=== PATIENT | female | born 1955 | race Caucasian/White ===

== ENCOUNTER → 2017-10-23 | Outpatient (CLI) | payer OTHER, SELFPAY ==
[2017-10-23 10:17] LABS: Collection Time Urine 24 Hours; Creatinine 24 Hour Urine 932 mg/day (800-1800); Creatinine Urine Random 56.5 mg/dL; Protein (Total) Urine Random 12 mg/dL (0-12); Total Protein 24 Hour Urine 198 mg/day (42-225); Total Volume Urine 1650 mL
== END ==
LOC: LAB 08:44
PROVIDERS: PCP Family Medicine; Visit Provider Family Medicine
DX: R60.0 Localized edema (principal)
CPT/HCPCS: 82570; 84156

== ENCOUNTER → 2018-05-29 07:42 | Outpatient (CLI) | payer OTHER, SELFPAY ==
--- NOTE | 2018-05-29 07:43 | DI.US.S_ITS ---
PROCEDURE: US RENAL COMPLETE INDICATIONS: PARAPELVIC CYSTS VS HYDRONEPHROSIS TECHNIQUE: Real-time scanning was performed of the kidneys and bladder, with image documentation. COMPARISON: , MR, MR LUMBAR SPINE WITHOUT CONTRAST, 10/31/2017, 12:31. FINDINGS: Kidneys: Kidneys are normal in size. Right kidney measures 11.7 cm long; left kidney measures 12.5 cm long. Right renal cortical thickness is 1.7 cm; left renal cortical thickness is 1.5 cm. Renal cortical echotexture is normal. Mild to moderate left hydronephrosis. Multiple right parovarian cysts present largest measuring roughly 1.0 cm. Left renal peripelvic cyst measuring 2.6 cm. Bladder: Pre-void bladder volume is 125 mL. Post-void residual is 111 mL. Pre-void images demonstrate no intraluminal masses or stones. On pre-void images, left ureteral jets are noted with color Doppler interrogation. (Of note, ureteral jets may not be detectable in up to 25% of cases due to insufficient differences in specific gravity between ureteral and bladder urine). Miscellaneous: No free pelvic fluid. IMPRESSION: 1. Mild/moderate left hydronephrosis. If indicated CT could be performed for further evaluation. 2. Bilateral renal peripelvic cysts. Dictated by: Chris Michaud A Interpreted: Poly Wilks MD on 05/29/2018 at 9:11 Approved by: Poly Wilks MD, PhD on 05/29/2018 at 14:50
== END ==
PROVIDERS: Family Provider Family Medicine; PCP Family Medicine; Visit Provider Family Medicine
DX: N28.1 Cyst of kidney, acquired (principal); N13.30 Unspecified hydronephrosis
CPT/HCPCS: 76770

== ENCOUNTER → 2018-06-21 09:41 | Outpatient (CLI) | payer OTHER, SELFPAY ==
--- NOTE | 2018-06-21 | DI.NM.S_ITS ---
PROCEDURE: NM RENAL FUNCTION W LASIX RADIOPHARMACEUTICAL: 10.5 mCi Tc-99m MAG3 IV and 40 mg furosemide IV. INDICATIONS: LEFT HYDRONEPHROSIS TECHNIQUE: The patient was hydrated orally before the examination was begun. After intravenous administration of Tc-99m MAG3, posterior abdominal radionuclide angiogram and sequential (1 minute each frame) renal images were obtained. A time-activity curve for each kidney was generated and analyzed. To evaluate for obstruction, the patient was given 40 mg furosemide via slow intravenous injection after the start of the examination. Sequential images were obtained for up to an additional 20 minutes. COMPARISON: [facility], MR, MR LUMBAR SPINE WITHOUT CONTRAST, 10/31/2017, 12:31. [facility], US, US RENAL COMPLETE, 05/29/2018, 7:57. FINDINGS: Perfusion: There is normal vascular flow to both kidneys. Morphology: Both kidneys are normal in size and shape. No dilated collecting systems are seen on the right, and on the left there is mild hydronephrosis and hydroureter extending inferiorly to the bladder level.. The ureters and bladder fill with tracer, and appear normal. Function: Both kidneys demonstrate normal cortical tracer uptake, with [id number] activity measuring 2.5 minutes. The right kidney contributes 59% of total renal function. The left kidney contributes 41 % of total renal function. Lasix stimulation: After diuretic administration, there is prompt clearance of tracer activity from the renal collecting systems in both kidneys. The half-time of emptying of tracer activity from the right pelvicaliceal system is 6.9 minutes. The half-time of emptying from the left pelvicaliceal system is 11.2 minutes. Normal emptying half-times are less than 10 minutes; borderline ranges are from 10 to 20 minutes. IMPRESSION: Asymmetric renal function is mild in this patient with hydronephrosis and hydroureter extending to the bladder level. Etiology is not established by this study. There is approximately a 60% right renal contribution to total renal function in 40% on the left. Evacuation of the radioisotope after Lasix is mildly delayed on the left, as expected given the presence of chronic hydronephrosis, but without evidence of high-grade obstruction. Dictated by: Levon Fenton M.D. on 06/21/2018 at 13:59 Approved by: Levon Fenton M.D. on 06/21/2018 at 14:09
== END ==
PROVIDERS: PCP Family Medicine; Visit Provider Specialist
DX: N13.30 Unspecified hydronephrosis (principal)
CPT/HCPCS: 78708; A9562

== ENCOUNTER → 2018-10-09 08:49 | Outpatient (CLI) | payer OTHER, SELFPAY ==
--- NOTE | 2018-10-09 | DI.MG.S_ITS ---
BILATERAL DIGITAL SCREENING MAMMOGRAM 3D/2D WITH CAD: 10/09/2018 CLINICAL: Routine screening. Comparison is made to exams dated: 08/07/2017 mammogram - [facility], 02/25/2016 mammogram, and 11/09/2014 mammogram - [facility]. There are scattered fibroglandular elements in both breasts. Current study was also evaluated with a Computer Aided Detection (CAD) system. No significant masses, calcifications, or other findings are seen in either breast. There has been no significant interval change. IMPRESSION: NEGATIVE There is no mammographic evidence of malignancy. A 1 year screening mammogram is recommended. This exam was interpreted at Station ID: [id number]. NOTE: For mammograms, a report in lay terms will be sent to the patient. Approximately 15% of breast malignancies will not be visualized mammographically. In the management of a palpable breast mass, a negative mammogram must not discourage biopsy of a clinically suspicious lesion. Electronically Signed By: Florence govea/tani:10/09/2018 10:10:42 letter sent: Normal Exam ACR BI-RADS Category 1: Negative [id number]
== END ==
PROVIDERS: PCP Family Medicine; Visit Provider Family Medicine
DX: Z12.31 Encounter for screening mammogram for malignant neoplasm of breast (principal)
CPT/HCPCS: 77063; 77067

== ENCOUNTER → 2018-10-23 10:48 | Outpatient (CLI) | payer OTHER, SELFPAY ==
[2018-10-23 10:52] LABS: RBC Urine None Seen (0-5/HPF)
[2018-10-23 11:18] LABS: Appearance Urine UA CLEAR; Bilirubin Urine UA NEGATIVE (NEGATIVE); Color Urine UA YELLOW; Glucose Urine UA NEGATIVE (Negative); Ketones Urine UA NEGATIVE (NEGATIVE); Leukocyte Esterase Urine UA NEGATIVE (NEGATIVE); Nitrite Urine UA POSITIVE (Negative); Occult Blood Urine UA NEGATIVE (Negative); Protein Urine UA NEGATIVE (Negative); Urobilinogen Urine UA 0.2 E.U./dL (0.2)
[2018-10-23 11:26] LABS: Bacteria Urine Many (>30); Culture Indicated Urine Specimen Cultured; Squamous Epithelial Cell Urine 0-1 /HPF (0-5/HPF); WBC Urine 0-1/HPF (0-5/HPF)
[2018-10-23 12:22] LABS: Add Manual Diff / Slide Review NO; Basophils Absolute Auto 0 /uL (0-100); Basophils Percent Auto 1.1 % (0-2); Eosinophils Absolute Auto 100 /uL (0-450); Eosinophils Percent Auto 1.7 % (2-4); Hematocrit 38.7 % (36-46); Lymphocytes Absolute Auto 1200 /uL (1100-4500); Lymphocytes Percent Auto 31.2 % (25-40); Mean Corpuscular HGB Conc 33.6 % (30-36); Mean Corpuscular Hemoglobin 29.8 PG (26-34); Mean Corpuscular Volume 88.8 fL (80-100); Monocytes Absolute Auto 400 /uL (0-900); Monocytes Percent Auto 11.9 % (3-14); Neutrophils Absolute Auto 2000 /uL (1500-7000); Neutrophils Percent Auto 54.1 % (50-75); Platelet Count 289 X10^3/uL (150-400); Red Blood Cell Count 4.36 X10^6/uL (4.0-5.2); Red Cell Distribution Width 13.4 % (11.6-14.8); White Blood Cell Count 3.8 X10^3/uL (4.5-11.0)
[2018-10-23 12:33] LABS: Alanine Aminotransferase 40 IU/L (9-52); Albumin 4.4 g/dL (3.5-5.0); Albumin Globulin Ratio 1.4 (1.0-2.8); Alkaline Phosphatase 94 U/L (38-126); Aspartate Aminotransferase 27 IU/L (14-36); BUN Creatinine Ratio 23.8 (6-22); Bilirubin Total 0.4 mg/dL (0.2-1.3); Blood Urea Nitrogen 19 mg/dL (7-17); Calcium 9.5 mg/dL (8.4-10.2); Carbon Dioxide 26 mmol/L (22-32); Chloride 101 mmol/L (98-107); Cholesterol 260 mg/dL (140-199); Estimated Glomerular Filt Rate > 60.0 mL/min (>60); Globulin 3.1 g/dL (1.7-4.1); Glucose 97 mg/dL (80-110); HDL Cholesterol 44 mg/dL (40-60); HEMOLYSIS < 15 (0-50); LDL Cholesterol Calculated 183 mg/dL (<100); Potassium 3.8 mmol/L (3.4-5.1); Sodium 138 mmol/L (137-145); Total Protein 7.5 g/dL (6.3-8.2); Triglycerides 167 mg/dL (35-150)
[2018-10-23 12:49] LABS: TSH w/ Reflex to FT4 1.74 uIU/mL (0.47-4.68)
== END ==
PROVIDERS: PCP Family Medicine; Visit Provider Family Medicine
DX: Z00.00 Encounter for general adult medical examination without abnormal findings (principal); E78.2 Mixed hyperlipidemia; R30.0 Dysuria; N28.1 Cyst of kidney, acquired
CPT/HCPCS: 80053; 80061; 81001; 84443; 85025; 87077; 87086; 87186

== ENCOUNTER → 2019-07-24 08:44 | Outpatient (CLI) | payer MEDICARE, BC, SELFPAY ==
[2019-07-24 09:55] LABS: Cholesterol 203 mg/dL (140-199); HDL Cholesterol 45 mg/dL (40-60); LDL Cholesterol Calculated 141 mg/dL (<100); Triglycerides 86 mg/dL (35-150)
== END ==
PROVIDERS: PCP Family Medicine; Visit Provider Family Medicine
DX: E78.2 Mixed hyperlipidemia (principal)
CPT/HCPCS: 36415; 80061

== ENCOUNTER → 2019-12-16 10:43 | Outpatient (CLI) | payer MEDICARE, BC, SELFPAY ==
[2019-12-16 12:29] LABS: BUN Creatinine Ratio 24.1 (6-22); Blood Urea Nitrogen 19 mg/dL (7-17); Carbon Dioxide 24 mmol/L (22-32); Chloride 103 mmol/L (98-107); Estimated Glomerular Filt Rate > 60.0 mL/min (>60); Glucose 96 mg/dL (80-110); HEMOLYSIS 18 (0-50); Potassium 4.4 mmol/L (3.4-5.1); Sodium 136 mmol/L (137-145)
[2019-12-16 12:33] LABS: Creatinine Urine Random 67.5 mg/dL
[2019-12-16 12:38] LABS: Microalbumi Creatinin Ratio Ur 16.2 ug/mg CR (<30); Microalbumin Urine Random 1.1 mg/dL (0-1.6)
== END ==
PROVIDERS: PCP Family Medicine; Referring Provider Family Medicine; Visit Provider Family Medicine
DX: I10 Essential (primary) hypertension (principal)
CPT/HCPCS: 36415; 80048; 82043; 82570

== ENCOUNTER → 2020-10-15 10:14 | Outpatient (CLI) | payer MEDICARE, BC, SELFPAY ==
--- NOTE | 2020-10-15 | DI.MG.S_ITS ---
BILATERAL DIGITAL SCREENING MAMMOGRAM 3D/2D WITH CAD: 10/15/2020 CLINICAL: Routine screening. Comparison is made to exams dated: 10/09/2018 mammogram, 08/07/2017 mammogram - [facility], and 02/25/2016 mammogram - [facility]. There are scattered fibroglandular elements in both breasts. Current study was also evaluated with a Computer Aided Detection (CAD) system. There are benign intramammary nodes in the right breast. No significant masses, calcifications, or other findings are seen in either breast. There has been no significant interval change. IMPRESSION: BENIGN There is no mammographic evidence of malignancy. A 1 year screening mammogram is recommended. This exam was interpreted at Station ID: [id number]. NOTE: For mammograms, a report in lay terms will be sent to the patient. Approximately 15% of breast malignancies will not be visualized mammographically. In the management of a palpable breast mass, a negative mammogram must not discourage biopsy of a clinically suspicious lesion. Electronically Signed By: Priya rueda/tani:10/15/2020 12:42:30 letter sent: Normal Exam ACR BI-RADS Category 2: Benign Finding(s) 3342F
== END ==
PROVIDERS: PCP Family Medicine; Referring Provider Family Medicine; Visit Provider Family Medicine
DX: Z12.31 Encounter for screening mammogram for malignant neoplasm of breast (principal)
CPT/HCPCS: 77063; 77067

== ENCOUNTER → 2020-12-31 09:44 | Outpatient (CLI) | payer MEDICARE, BC, SELFPAY ==
[2020-12-31 11:18] LABS: Creatinine Urine Random 119.6 mg/dL
[2020-12-31 11:24] LABS: Microalbumin Urine Random 1.8 mg/dL (0-1.6)
[2020-12-31 11:30] LABS: Alanine Aminotransferase 25 IU/L (<35); Albumin 4.3 g/dL (3.5-5.0); Albumin Globulin Ratio 1.7 (1.0-2.8); Alkaline Phosphatase 82 U/L (38-126); Aspartate Aminotransferase 31 IU/L (14-36); BUN Creatinine Ratio 16.3 (6-22); Bilirubin Total 0.5 mg/dL (0.2-1.3); Blood Urea Nitrogen 14 mg/dL (7-17); Calcium 10.1 mg/dL (8.4-10.2); Carbon Dioxide 29 mmol/L (22-32); Chloride 102 mmol/L (98-107); Cholesterol 215 mg/dL (140-199); Estimated Glomerular Filt Rate > 60.0 mL/min (>60); Globulin 2.6 g/dL (1.7-4.1); Glucose 89 mg/dL (80-110); HDL Cholesterol 48 mg/dL (40-60); HEMOLYSIS < 15 (0-50); LDL Cholesterol Calculated 127 mg/dL (<100); Potassium 4.2 mmol/L (3.4-5.1); Sodium 139 mmol/L (137-145); Total Protein 6.9 g/dL (6.3-8.2); Triglycerides 200 mg/dL (35-150)
== END ==
PROVIDERS: PCP Family Medicine; Referring Provider Family Medicine; Visit Provider Family Medicine
DX: I10 Essential (primary) hypertension (principal)
CPT/HCPCS: 36415; 80053; 80061; 82043; 82570

== ENCOUNTER → 2021-04-29 08:08 | Outpatient (CLI) | payer MEDICARE, OTHER, SELFPAY ==
--- NOTE | 2021-04-29 | DI.MRI.S_ITS ---
PROCEDURE: MR KNEE RT WO CON INDICATIONS: Unilateral primary osteoarthritis, right knee TECHNIQUE: Noncontrast sagittal PD fast spin echo and T2 fast spin echo with fat saturation, sagittal 3-D FLASH with fat saturation; coronal T1 spin echo and PD fast spin echo with fat saturation, and axial PD fast spin echo with fat saturation through the knee. COMPARISON: None. FINDINGS: Image quality: Images are degraded by motion artifact. Menisci: Deficiency of the medial meniscus, compatible with longstanding tear/degenerative change. Non surface signal in the posterior horn, medial meniscus. Cruciate ligaments: Patient is status post anterior cruciate ligament repair. The graft is not well seen, concerning for disruption. The femoral and tibial hardware is in expected positions, without widening or tunnel cysts. The posterior cruciate ligament appears intact. Medial structures: Periligamentous edema, compatible with grade 2 injury. The visualized portions of the pes anserinus tendons appear intact. Lateral structures: The lateral collateral ligament complex appears intact. The popliteus tendon appears intact. A 3.8 x 4.4 x 1.8 cm fluid collection is seen deep to the lateral gastrocnemius and abutting the popliteus (series 8, image 26). The iliotibial band appears normal, without findings to suggest friction syndrome. Anterior structures: The quadriceps and patellar tendons appear intact. Patellar alignment is normal. No femoral trochlear dysplasia or ventral trochlear prominence. No edema in the infrapatellar fat pad. No localized arthrofibrosis (cyclops lesion) in the anterior intercondylar notch. Bones and cartilage: Sagittal images demonstrate no abnormal anterior tibial translation. Tricompartmental osteophytosis. No bone marrow contusions or fractures. Signal heterogeneity, contour irregularity, and thinning of the tricompartment hyaline cartilage. Joint space: Small knee joint fluid. A 4.7 x 1.8 x 1.4 cm T2 hyperintense lesion is seen in the popliteal fossa, most consistent with a Moya's cyst. No intra-articular bodies. IMPRESSION: 1. Grade 2 injury of the MCL. 2. Fluid collection in the lateral posterior calf as detailed above, most consistent with a hematoma. Differential considerations include musculotendinous injury of the popliteus or intramuscular hematoma of the lateral gastrocnemius. 3. Poor visualization of the ACL graft, concerning for disruption. 4. Small joint effusion. 5. Cystic-appearing lesion in the popliteal fossa, likely reflecting a Moya cyst. Dictated by: Clif Hawthorne M.D. on 04/29/2021 at 9:38 Approved by: Clif Hawthorne M.D. on 04/29/2021 at 9:52
== END ==
PROVIDERS: PCP Family Medicine; Referring Provider Orthopaedic Surgery; Visit Provider Orthopaedic Surgery
DX: M17.11 Unilateral primary osteoarthritis, right knee (principal); S83.411A Sprain of medial collateral ligament of right knee, initial encounter; M25.461 Effusion, right knee; Z23 Encounter for immunization
CPT/HCPCS: 0013A; 73721; 91301

== ENCOUNTER → 2021-06-09 09:17 | Outpatient (CLI) | payer MEDICARE, OTHER, SELFPAY ==
[2021-06-09 09:55] LABS: Add Manual Diff / Slide Review NO; Basophils Absolute Auto 0 /uL (0-100); Basophils Percent Auto 1.1 % (0-2); Eosinophils Absolute Auto 200 /uL (0-450); Eosinophils Percent Auto 4.2 % (2-4); Hematocrit 35.5 % (36-46); Hemoglobin 12.2 g/dL (12.0-16.0); Lymphocytes Absolute Auto 1200 /uL (1100-4500); Lymphocytes Percent Auto 27.7 % (25-40); Mean Corpuscular HGB Conc 34.4 % (30-36); Mean Corpuscular Hemoglobin 30.9 PG (26-34); Mean Corpuscular Volume 89.8 fL (80-100); Monocytes Absolute Auto 300 /uL (0-900); Monocytes Percent Auto 6.5 % (3-14); Neutrophils Absolute Auto 2700 /uL (1500-7000); Neutrophils Percent Auto 60.5 % (50-75); Platelet Count 311 X10^3/uL (150-400); Red Blood Cell Count 3.96 X10^6/uL (4.0-5.2); Red Cell Distribution Width 13.3 % (11.6-14.8); White Blood Cell Count 4.4 X10^3/uL (4.5-11.0)
[2021-06-09 10:37] LABS: BUN Creatinine Ratio 23.3 (6-22); Blood Urea Nitrogen 21 mg/dL (7-17); Calcium 9.7 mg/dL (8.4-10.2); Carbon Dioxide 28 mmol/L (22-32); Chloride 105 mmol/L (98-107); Estimated Glomerular Filt Rate > 60.0 mL/min (>60); Glucose 101 mg/dL (80-110); HEMOLYSIS < 15 (0-50); Potassium 4.4 mmol/L (3.4-5.1); Sodium 139 mmol/L (137-145)
== END ==
PROVIDERS: PCP Family Medicine; Referring Provider Orthopaedic Surgery; Visit Provider Orthopaedic Surgery
DX: Z01.818 Encounter for other preprocedural examination (principal); Z01.812 Encounter for preprocedural laboratory examination
CPT/HCPCS: 36415; 80048; 85025; 93005; 93010

== ENCOUNTER → 2021-07-04 13:20 | Outpatient (CLI) | payer MEDICARE, OTHER, SELFPAY ==
[2021-07-04 16:21] LABS: COVID19 -Nasal RAPID Negative (Negative)
== END ==
PROVIDERS: PCP Family Medicine; Referring Provider Nurse Practitioner Family; Visit Provider Nurse Practitioner Family
DX: Z01.812 Encounter for preprocedural laboratory examination (principal); Z20.822 Contact with and (suspected) exposure to COVID-19
CPT/HCPCS: 87635; C9803

== ENCOUNTER → 2021-07-06 13:53 | Outpatient (CLI) | payer MEDICARE, OTHER, SELFPAY ==
[2021-07-06 14:55] LABS: COVID19 -Nasal RAPID Negative (Negative)
== END ==
PROVIDERS: PCP Family Medicine; Referring Provider Nurse Practitioner Family; Visit Provider Nurse Practitioner Family
DX: Z01.812 Encounter for preprocedural laboratory examination (principal); Z20.822 Contact with and (suspected) exposure to COVID-19
CPT/HCPCS: 87635; C9803

== ENCOUNTER 2021-07-09 11:54 | Observation (INO) | payer MEDICARE, OTHER, SELFPAY ==
--- NOTE | 2021-07-05 19:25 | SUR.PREOP ---
Pt notified that surgery cancelled for tommorrow. Notified to call surgeon's office tommorrow to reschedule.
[2021-07-06 10:56] VITALS: BMI 30.1
[2021-07-08] VITALS (9 sets, daily range): BP systolic 118–159; BP diastolic 61–99; PULSE 68–78; RESP 11–19; TEMP 36.1–37.1; O2SAT 97–99; BMI 30.1
--- NOTE | 2021-07-08 10:37 | SUR.PREOP ---
Block start time [] . Monitoring initiated and maintained throughout procedure. Oxygen and medications given per anesthesiologist instructions. Patient remained stable throughout procedure, no adverse reactions noted. Block end time [].
[2021-07-08] MEDS: LACTATED RINGERS 1,000 ML 42 ML IV (11:16)
[2021-07-08] MEDS: CELECOXIB 200 MG CAPSULE PO (11:19)
[2021-07-08] MEDS: ACETAMINOPHEN 325 MG TABLET 975 MG PO (11:19)
[2021-07-08] MEDS: PREGABALIN 75 MG CAPSULE PO (11:29)
--- NOTE | 2021-07-08 13:10 | PM.PREOP ---
Pre-operative Note COVID-19 COVID-19 status: Negative Result date/Date tested (Pos, Neg/Pending): 07/06/21 Interval Note History & Physical reviewed/Exam performed by Physician: Yes Changes to H&P: No
--- NOTE | 2021-07-08 13:17 | PM.PROC.1 ---
Procedures Date/Time Date of procedure: 07/08/21 Time of procedure: 13:14 Nerve Block Time out performed: Yes Local anesthetic used: bupivacaine 0.25% Location of anesthetic used: RIGHT Amount of anesthesia used (mL): 30 Nerve blocks: femoral (adductor canal) Procedure successful: Yes Patient tolerated procedure: well and no complications Complications: none Additional comments: Adductor canal nerve block performed for post-op pain control at surgeon request. Patient was positioned with IV, O2, monitors and rescue meds available. Prepped and timeout performed. Target identified with continuous ultrasound guidance. 30 mL of bupivicaine 0.25% was injected perineurally with intermittent aspiration and injection. No blood, no paresthesias, no acute complications. Ultrasound pic attained.
[2021-07-08] MEDS: CEFAZOLIN 2 GM/20 ML SYRINGE IV ×2 (13:34→14:01)
[2021-07-08] MEDS: TRANEXAMIC ACID 1,000 MG VIAL 1000 MG INJ ×3 (13:35→14:39)
--- NOTE | 2021-07-08 13:54 | SUR.OPER ---
Supine on padded OR bed. Pillow under head, arms secured on padded armboards <90 degree abduction. Safety belt across torso. Non-operative leg secured with tape over blanket over lower leg. Operative leg secured in De[employer]o/Ye/Nathe positioner. Foam padded brace at thigh of operative leg.
[2021-07-08] MEDS: BUPIVACAINE LIPOSOME 266 MG/20 ML VIAL INJ ×2 (14:00)
[2021-07-08] MEDS: MORPHINE 4 MG/ML INJ INJ (14:00)
[2021-07-08] MEDS: BUPIVACAINE 0.25% (PF) 60 ML, EPINEPHrine 0.3 MG INJ (14:01)
--- NOTE | 2021-07-08 14:36 | SUR.PREOP ---
Block start time [1310] . Time out preformed. Monitoring initiated and maintained throughout procedure. Patient remained stable throughout procedure, no adverse reactions noted. Block end time [1314]. Pt left room in stable condition.
--- NOTE | 2021-07-08 15:27 | DI.RAD.S_ITS ---
PROCEDURE: XR KNEE RT 1TO2V INDICATIONS: post op total knee TECHNIQUE: 2 view(s) of the knee acquired. COMPARISON: [facility], MR, MR KNEE RT WO CON, 04/29/2021, 8:44. [facility], CR, XR KNEE 4+ VIEWS RIGHT, 03/22/2021, 10:26. FINDINGS: Bones: Patient is status post knee joint arthroplasty. Hardware components are in expected positions. Visualized bony structures are intact. Soft tissues: Overlying postoperative changes are noted. IMPRESSION: Normal postoperative examination. Dictated by: Ray Mcdonough M.D. on 07/08/2021 at 14:51 Approved by: Ray Mcdonough M.D. on 07/08/2021 at 14:51
--- NOTE | 2021-07-08 15:29 | P.OP_ITS ---
Operative Date/Time/Diagnoses Date of procedure: 07/08/21 Time of procedure: 14:45 Pre-op diagnosis: Right knee post traumatic osteoarthritis Post-op diagnosis: same Procedure & Clinicians Procedure: 1. Right total knee replacement 2. Removal of tibial staple Same procedure as scheduled: Yes Indications: The patient has had progressively worsening right knee pain with radiographic changes consistent with arthritis. Non-operative management has failed and the patient has requested total knee replacement. The risks, benefits and alternativ es to surgery were discussed with the patient prior to proceeding. Risks discussed included, but were not limited to, failure to relieve pain, stiffness, infection, nerve damage, deep venous thrombosis, pulmonary embolism, stroke, coma, heart attack, permanent paralysis and , as well as the potential need for eventual revision of the prosthetic. Surgeon: Sergio Cintron Application Services Manager: Nydia Stuart Click Yes if Unassisted: No Anesthesia Type: Spinal, Peripheral nerve block and Local Operative Notes Findings: Severe lateral and patellofemoral osteoarthritis. The tibial staple interfered with placement of the tibial prosthetic and needed to be removed. Closure Type: primary Specimen(s): none sent Prosthetic devices, grafts, tissues, transplants, or devices: Implants used in this procedure were manufactured by the [employer] and [employer] and included the BCS II Journey total knee replacement with a size 5 right Oxinium femur, a size 4 right non porous tibial base plate, a 10 mm cross- linked polyethylene tibial insert a 32 mm oval Kelli II patella. Applied: implant(s) Estimated Blood Loss (mL): 50 Tourniquet time (min): 53 Procedure in detail: The patient was seen in the pre-operative area, where the patient identified the right knee as the operative site and this was marked with my initials. The patient received pre-operative antibiotics, and was taken to the operating room and placed on the operative table in the supine position. After satisfactory anesthesia, a motion and time study teacher out was performed. The right leg was encircled with a tourniquet about the proximal thigh, and the leg was prepared from the toes to the tourniquet with ChloroPrep in the usual fashion and draped through sterile drapes. The leg was elevated and exsanguinated with Eschmark bandage and the tourniquet inflated to 250 mmHg pressure. The knee was approached through an approximately 18 cm incision centered over the patella and carried into the knee through a medial parapatellar arthrotomy. The anterior osteophytes and soft tissues were removed. The rotational landmarks of Maries's line and the transepicondylar axis were marked on the femur with electrocautery, and intramedullary guide holes for the femur and tibia were created. The distal femoral cut was made in 6 degrees of valgus using the intramedullary guide at the primary cut setting. The proximal tibial cut was then made using the intramedullary guide, taking 9 mm of bone off the less involved side. The extension gap was checked and the rotation of the femoral component confirmed with the gap balancing system. The anterior, posterior and chamfer cuts were then made. The posterior osteophytes and soft tissues were then removed. The posterior capsule was injected with part of a mixture of 50 ml 0.25% Marcaine mixed with 20 ml Exparel and 4 mg of morphine for post-operative pain control. The remainder of this mixture was injected into the capsule and subcutaneous tissues during cement curing. The tibia was prepared with the rotation set by an extra medullary guide. Trial tibial and femoral components were then placed and the intercondylar notch cut through the femoral trial. Range of motion was 0-135 degrees, with good stabi lity throughout the range. The patella was then cut to accommodate the patellar prosthetic. There was a tendency for lateral subluxation of the patella so a ?pie crust? lateral release was performed. The trials were then removed, and the femoral hole plugged with a bone plug. The bone was prepared with pulsatile lavage, and dried with a sponge. Cement was applied and the final prosthetics placed. Excess cement was removed during and after cement curing. After confirming there was no extruded cement posteriorly, the final tibial insert was placed. The knee was copiously irrigated and the tourniquet deflated. Hemostasis was obtained. The capsule was closed with interrupted # 2 polyester suture. The subcutaneous layer was closed with 3-0 Vicryl, and the skin with a running 3-0 V-Lock suture and Dermabond. An Aquacel Ag dressing was applied and the patient was transferred to the recovery room in good condition having tolerated the procedure well. Complications: none Post-operative Condition: stable Disposition: PACU Plan for aftercare: The patient will be maintained on a standard total knee replacement protocol with weight bearing as tolerated. The patient will receive aspirin and sequential compression devices for DVT prophylaxis. The patient will be discharged home when safe for the home environment.
[2021-07-08] MEDS: OXYCODONE IR 5 MG TABLET PO (15:43)
--- NOTE | 2021-07-08 16:11 | SUR.PHASEI ---
Received after right total knee surgury. Minimal pain and wide awake. Some pain started a half hour in. Oxycodone given. Taken to acute care after report given to Donna
[2021-07-08] MEDS: hydrOXYzine pamoate 25 MG CAPSULE PO (16:13)
[2021-07-08] MEDS: IBUPROFEN 400 MG TABLET PO ×2 (16:13→20:38)
[2021-07-08] MEDS: OXYCODONE IR 10 MG TABLET PO (16:20)
[2021-07-08] MEDS: LACTATED RINGERS 1,000 ML 100 ML IV (16:23)
--- NOTE | 2021-07-08 20:09 | PC.NURSE ---
Pt arrived from PACU at 1610, she reports pain unrelieved with 5mg oxycodone. She is A&OX3. Pain much better controlled this evening with 10 mg oxycodone, vesteril, and ibuprofen. She denies n/v. She is able to void on the bed pain. Dressing C/D/I to RLE. VSS,afebrile. Unable to use IS this evening allowed to sleep. at bedside supportive. LR at 100 ml/hr. Continuous monitoring.
[2021-07-08] MEDS: ACETAMINOPHEN 325 MG TABLET 650 MG PO (20:38)
[2021-07-08] MEDS: DOCUSATE 100 MG CAPSULE PO (20:38)
[2021-07-08] MEDS: TRAZODONE 50 MG TABLET PO (20:38)
[2021-07-08] MEDS: ASPIRIN EC 81 MG TABLET PO (20:39)
[2021-07-09] MEDS: IBUPROFEN 400 MG TABLET PO ×6 (01:07→20:06)
[2021-07-09] MEDS: OXYCODONE IR 5 MG TABLET PO (03:21)
[2021-07-09 03:34] VITALS: BP 139/65; PULSE 70; RESP 16; TEMP 36.2; O2SAT 96
[2021-07-09] MEDS: SODIUM CHLORIDE 0.9% FLUSH 10 ML IV ×3 (04:50→20:10)
[2021-07-09] MEDS: PANTOPRAZOLE DR 20 MG TABLET PO (05:23)
[2021-07-09 08:00] VITALS: BP 125/62; PULSE 75; RESP 18; TEMP 36.1; O2SAT 98
[2021-07-09] MEDS: AMLODIPINE 5 MG TABLET PO (08:33)
[2021-07-09] MEDS: ASPIRIN EC 81 MG TABLET PO ×2 (08:33→20:06)
[2021-07-09] MEDS: DOCUSATE 100 MG CAPSULE PO ×2 (08:33→20:06)
[2021-07-09] MEDS: ACETAMINOPHEN 325 MG TABLET 650 MG PO ×3 (08:33→21:23)
[2021-07-09] MEDS: EZETIMIBE 10 MG TABLET PO (08:33)
[2021-07-09 08:39] LABS: Hemoglobin 10.4 g/dL (12.0-16.0)
[2021-07-09] MEDS: INFLUENZA HD VACCINE 0.7 ML SYRINGE IM (09:13)
--- NOTE | 2021-07-09 09:21 | P.DS_ITS ---
History of Present Illness History of Present Illness Date Patient Seen: 07/09/21 Time Patient Seen: 09:22 Chief complaint: OPB Narrative: [address] [address] Operative Note Provider:Sergio Crockett MD Operative Date/Time/Diagnoses Date of procedure: 07/08/21 Time of procedure: 14:45 Pre-op diagnosis: Right knee post traumatic osteoarthritis Post-op diagnosis: same Procedure & Clinicians Procedure: 1. Right total knee replacement 2. Removal of tibial staple Same procedure as scheduled: Yes Indications: The patient has had progressively worsening right knee pain with radiographic changes consistent with arthritis. Non-operative management has failed and the patient has requested total knee replacement. The risks, benefits and alternatives to surgery were discussed with the patient prior to proceeding. Risks discussed included, but were not limited to, failure to relieve pain, stiffness, infection, nerve damage, deep venous thrombosis, pulmonary embolism, stroke, coma, heart attack, permanent paralysis and , as well as the pote ntial need for eventual revision of the prosthetic. Operative Notes Findings: Severe lateral and patellofemoral osteoarthritis.? The tibial staple interfered with placement of the tibial prosthetic and needed to be removed. Closure Type: primary Specimen(s): none sent Prosthetic devices, grafts, tissues, transplants, or devices: Implants used in this procedure were manufactured by the [employer] and [employer] and included the BCS II Journey total knee replacement with a size 5 right Oxinium femur, a size 4 right non porous tibial base plate, a 10 mm cross- linked polyethylene tibial insert a 32 mm oval Kelli II patella. Applied: implant(s) Estimated Blood Loss (mL): 50 Tourniquet time (min): 53 Discharge Providers Provider Date of admission: Discharge Date: 07/09/21 Primary care physician: Екатерина Underwood MD Consults: 07/08/21 16:00 Consult to Discharge Planning Routine Comment: Consult to Physical Therapy Evaluate & Treat Comment: Physician Instructions: postop TKA protocol Discharge provider: Sonya Alvarado PA-C Summary Hospital Course Discharge Diagnosis: s/p RIGHT total knee arthroplasty Hospital Course: On POD#1, patient was sitting up in bed and eating breakfast without difficulty. Rated pain in knee as 2/10. Had walker for homegoing and outpt PT scheduled. She felt like she wanted to go home if physical therapy felt she was safe and her pain remained well-controlled. Status at Discharge Cognitive/behavioral status at discharge: at baseline, oriented Functional status at discharge: uses cane/walker Exam Vital Signs (past 8 hours): - 07/09/21 03:34 07/09/21 08:00 Temperature 97.2 F L 97.0 F L Pulse Rate 70 75 Respiratory Rate 16 18 Blood Pressure 139/65 125/62 Pulse Oximetry 96 98 Oxygen Delivery Method Room Air Oxygen Flow Rate 0 Narrative Exam Narrative: Afebrile, VSS. H/H as expected given surgical blood loss. 5/5 strength in quadriceps, hamstrings, dorsiflexors, plantarflexors bilaterally. Sensation to light touch intact in BLE. Calves soft, compressible, and nontender without palpable cords or masses. Const General: cooperative and comfortable Orientation: alert, awake and oriented x3 Objective Labs Result Diagrams: 07/09/21 07:15 Labs: Laboratory Results - last 24 hr 07/09/21 07:15 Hgb 10.4 L Hct 31.0 L PFSH Medical History (Updated 07/08/21 @ 11:00 by Aruna Riddle RN) Easy bruisability GERD (gastroesophageal reflux disease) HLD (hyperlipidemia) HTN (hypertension) Osteoarthritis Sciatica Surgical History (Updated 07/09/21 @ 09:15 by Sonya Alvarado PA-C) Status post hysterectomy Status post knee surgery Family History (Updated 07/31/16 @ 00:00 by Conversion Provider) Brother Age: 72 Hypertension High cholesterol Brother Age: 73 Hypertension High cholesterol Father Cancer Hypertension High cholesterol Grandmother Hypertension Stroke Mother Age: 96 Hypertension High cholesterol Social History marital status: number of children: 2 household members: spouse lives independently: Yes caregiver/support person: No housing: house Smoking Status: Former smoker second hand exposure: No alcohol intake: current substance use type: does not use Discharge Assessment & Plan Assessment and Plan Assessment: 1) S/p right total knee arthroplasty. Recovery WNL. 2) Acute blood loss anemia following surgery. Asymptomatic, intervention not needed at this time. 3) Obesity Plan of Treatment: Patient to discharge home after cleared by physical therapy. Continue aspirin 81 mg BID x 6 weeks for VTE prophylaxis. Discharge Plan Discharge Plan Patient Disposition: Home Discharge orders & Medications Discharge Orders: Discharge (Order); Ordered 07/09/21 Ordered By: Sonya Alvarado Prescriptions: New acetaminophen 325 mg Tablet 650 mg PO TID PRN (Reason: pain) Qty: 90 0RF aspirin 81 mg Tablet,Delayed Release (Dr/Ec) 81 mg PO BID Qty: 90 0RF docusate sodium 100 mg Capsule 100 mg PO BID PRN (Reason: constipation associated with opioids) Qty: 60 1RF hydroxyzine pamoate 25 mg Capsule 25 mg PO Q6HR PRN (Reason: muscle spasm) Qty: 60 0RF ibuprofen 400 mg Tablet 400 mg PO Q4HR PRN (Reason: pain) Qty: 90 0RF oxycodone 5 mg Tablet 5 mg PO Q4-6H PRN (Reason: severe pain (scale score 7-10)) Qty: 60 0RF Continued amlodipine 10 mg tablet See Rx Instructions .ROUTE .COMPLEX Qty: 90 2RF Dose Instruction: TAKE ONE TABLET BY MOUTH ONE TIME DAILY Rx Instructions: TAKE ONE TABLET BY MOUTH ONE TIME DAILY ezetimibe 10 mg tablet See Rx Instructions .ROUTE .COMPLEX Qty: 90 2RF Dose Instruction: TAKE ONE TABLET BY MOUTH ONE TIME DAILY Rx Instructions: TAKE ONE TABLET BY MOUTH ONE TIME DAILY trazodone 50 mg tablet See Rx Instructions .ROUTE .COMPLEX Qty: 30 7RF Dose Instruction: TAKE ONE TABLET BY MOUTH AT BEDTIME NEEDED FOR INSOMNIA Label Comments: Pt states taking 100mg daily at bedtime Rx Instructions: TAKE ONE TABLET BY MOUTH AT BEDTIME NEEDED FOR INSOMNIA omeprazole 20 mg Capsule,Delayed Release(Dr/Ec) 20 mg PO DAILY 0RF Discontinued ibuprofen 200 mg Capsule 200 mg PO BID 0RF Follow up/Referrals: Екатерина Underwood MD [Primary Care Provider] - Sergio Cintron MD [Physician] - (Follow up as scheduled at [facility] office on 07/18/2021 @ 10:30 am) Diet/Activity/Treatments Diet: Diet as Tolerated Activity: Weight bearing as tolerated to right lower extremity. Use walker when ambulating for stability. Follow up with outpatient physical therapy as jackie eduled. Cold/Heat Therapy: Ice to knee for 15 minutes at a time as needed for pain. Skin/Wound/Dressing Care Report to your healthcare provider any signs of infection, such as:: chills, fever, night sweats, increased pain, unusual drainage and unusual redness Dressing: Can remove rahel wrap for comfort/showering. Leave Aquacel dressing in place until follow up appointment. May shower with Aquacel on; pat dry immediately after. No bathing or otherwise soaking incision. Call office if dressing becomes saturated inside. Visit Report/Discharge Packet Instructions: DI for Knee Replacement Stand Alone Forms: Surgery Discharge Discharge Data Primary Care Provider: Екатерина Underwood Attending Provider: Sergio Cintron
[2021-07-09] MEDS: OXYCODONE IR 10 MG TABLET PO ×2 (09:22→21:22)
--- NOTE | 2021-07-09 09:55 | PT.IIE ---
Current Diagnoses Unilateral primary osteoarthritis, right knee (07/08/21) Presence of unspecified artificial knee joint (07/08/21) Surgery Performed Operation Date: 07/08/21 12:15 Actual Procedures p Total Knee Arthroplasty(Right) - Sergio Cintron MD Surgical History (Last Reviewed 07/08/21 @ 09:58 by Aruna Riddle, RN) Status post hysterectomy Status post knee surgery Medical History (Last Updated 07/08/21 @ 11:00 by Aruna Riddle, RN) Easy bruisability GERD (gastroesophageal reflux disease) HLD (hyperlipidemia) HTN (hypertension) Osteoarthritis Sciatica Physical Therapy Inpatient Evaluation/Re-Eval M1 PT/OT-IP Prior Functional Status Start: 07/09/21 13:00 Freq: NEEDED Status: Active Protocol: Document 07/09/21 09:55 AB (Rec: 07/09/21 13:14 AB [id number]) Medical Review Prior Functional Status Medical History Reviewed Yes Communication able to make needs known Mobility and Gait pt stated that she is independent with all mobilities and ambulation without AD Social History Household Members spouse Living Arrangements House Number of Floors (Floors) One Floor Number of Stairs To Enter/Railing? no steps to enter Home Environment Standard Height Toilet,Walk in Shower Home Equipment Four Wheel Walker,Raised Toilet Seat w/Armrests,Shower Seat without Backrest M2 PT-IP Current Condition Start: 07/09/21 13:00 Freq: NEEDED Status: Active Protocol: Document 07/09/21 09:55 AB (Rec: 07/09/21 13:14 AB [id number]) Physical Therapy Current Condition Current Condition Evaluation Date 07/09/21 Treatment Diagnosis s/p R TKA; difficulty in walking Onset Date 07/08/21 M3 PT-IP Subjective Start: 07/09/21 13:00 Freq: NEEDED Status: Active Protocol: Document 07/09/21 09:55 AB (Rec: 07/09/21 13:14 AB [id number]) Subjective Physical Therapy Visit Type Type Initial Evaluation Visit Start Time 09:55 Visit Stop Time 10:45 Total Visit Minutes 50 Number of LAP CUTTER Visits 0 Physical Therapy Visit Comments Patient Comments agreeable to do PT Therapy Pain Assessment Pain When Pain Assessed At Rest Pain Present Pain Present Pain Reported Location right knee Intensity 5 Scale Used Numeric (0 - 10) Pain Management Techniques Modification of Treatment,Re- positioning,Timing of Activity with Medications M4 PT-IP Mobility and Gait Start: 07/09/21 13:00 Freq: NEEDED Status: Active Protocol: Document 07/09/21 09:55 AB (Rec: 07/09/21 13:14 AB [id number]) PT-Bed Mobility Assessment Supine to Sit Supine to Sit Standby Assistance PT-Transfer Assessment Sit to and From Stand Sit to and from Stand Contact Guard Assistance,1 Person Assistance,Use of Upper Extremities Equipment Transfer Assistive Device Gait Belt,Front Wheeled Walker Orthotic/Prosthetic Devices or Brace: No Transfers Transfer Destination Chair Transfer Technique ambulated Transfer Ability Level of Assist Contact Guard Assistance, Minimal Assistance,1 Person Assistance,Use of Upper Extremities Comments Mobility Comments bp supine: 132/59. completeds upine to sit SBA. pt able to sit on EOB SBA. no c/o dizziness. completed sit to stand CGA with cues. ambulated in room using FWW initially min A. educated on quads activation and pt requiring CGA towards end of ambulation. pt sat on chair. pt only has a 4WW at home. completed sit to stand from chair CGA. attempted to assess ambulation using 4WW but pt stated that she is dizzy. instructed pt to sit down. BP chekced: 85/39. informed nurse. elevated LE up . BP checked: 71/39. Reclined pt on chair. BP checked again: 88/46. call light and table placed within reach. pt stated that she is feeling more stable with FWW and want FWW dispensed to her from the hospital. informed PA for FWW orders. Gait Assessment Gait Gait Assistance Required: Contact Guard Assist,Minimum Assistance Distance (Feet) 40 Able to Maintain Weight Bearing Status Yes During Gait Assistive Devices Assistive Device Gait Belt,Front Wheeled Walker Orthotic/Prosthetic Devices or Brace: No Gait Deviations General Gait Pattern Antalgic,Decreased Stride Length,Decreased Feet Clearance Factors Limiting Gait Function Factors Limiting Gait Function Decreased Activity Tolerance, Decreased Strength,Limited Range of Motion,Pain,Poor Balance,Poor Safety Awareness PT-Balance Assessment Sitting Balance and Reactions Static Sitting Balance Ability Good Dynamic Sitting Balance Ability Good Standing Balance and Reactions Static Standing Balance Ability Fair Dynamic Standing Balance Ability Fair Device Used FWW M5 PT-IP Objective Assessments Start: 07/09/21 13:00 Freq: NEEDED Status: Active Protocol: Document 07/09/21 09:55 AB (Rec: 07/09/21 13:14 AB [id number]) Orientation Orientation/Cognition Level of Alertness Alert Orientation Name,Place,Situation Language Function Ability No Deficits Noted Safety Awareness Understands Safety Issues Memory Description No Deficits Noted Gross Range of Motion Lower Extremity ROM Impairments R knee extension: ~ 10 deg less to 0 R knee flexion: ~ 60 deg Strength Lower Extremity Strength Assessment Right Impaired Hip 4-/5 Knee 3+/5 Sensation Assessment Sensation Gross Sensation WNL Muscle Tone Muscle Tone WNL Yes M6 PT-IP Treatment Start: 07/09/21 13:00 Freq: NEEDED Status: Active Protocol: Document 07/09/21 09:55 AB (Rec: 07/09/21 13:14 AB [id number]) Physical Therapy Treatment Education Education Provided Precautions,Weight Bearing Status,Post-Op Packet,Safety M7 PT-IP Assessment and Plan Start: 07/09/21 13:00 Freq: NEEDED Status: Active Protocol: Document 07/09/21 09:55 AB (Rec: 07/09/21 13:14 AB [id number]) PT Summary Assessment and Plan Potential Rehabilitation Potential Good Status of Condition at Evaluation Evolving Summary Impairments Pain,ROM,Strength,Balance, Coordination,Sensation,Tone, Cognition,Bed Mobility, Transfers,Gait,Activity Tolerance Assessment Summary pt requiring CGA to min A with mobility using FWW. Pt was not able to tolerate much activity with c/o dizziness and BP decreased to 71/39. will continue to assess progress for safe d/c plan. Pt plans to go home and spouse to assist her. pt has outpt PT scheduled. Goals Bed Mobility Goal Independent Transfer Goal Independent,Front Wheeled Walker Gait Goal Independent,Front Wheel Walker Gait Distance 300 Other Goals improve ambulation using 4WW SBA 300 ft Days to Meet Goals 5 Frequency of Treatment Frequency Of Treatment Twice a Day Treatment Plan Physical Therapy Treatment Plan Bed Mobility Training,Transfer Training,Gait Training, Therapeutic Exercise,Balance Retraining,Post Op Education, Discharge Planning,Hot or Cold Pack,Neuromuscular Re-ed, Coordination Retraining,Manual Therapy Weight Bearing Status Weight Bearing Status Weight Bear as Tolerated Allowed Weight Bearing Amount (enter % RLE WBAT or #) (%) Recommendations To Nursing Amount of Assist Needed 1 Person Assist Discharge Recommendations PT Discharge Recommendations Home with Assistance, Outpatient PT Equipment Needed for Home Before FWW Discharge Transportation Needs at Discharge Private Vehicle
[2021-07-09 10:48] VITALS: BP 104/53; PULSE 70
--- NOTE | 2021-07-09 11:41 | CM.DANOTE ---
DCP: Case received, EMR reviewed and met with patient. Spouse, Kulwant, was also at bedside. Introduced self and role. Was able to obtain information regarding patient's baseline activity status prior to her surgery. DCP assessment completed with information currently available. Patient s a 66 year old female who admitted yesterday morning to the care of the orthopedic team. PCP: Dr. Underwood. Payer: confirmed: Medicare/[employer]. Patient came to the hospital via private vehicle for a surgical procedure. Patient had a right total knee procedure. Patient has history of right knee osteoarthritis. Met with patient and spouse in her room. She is alert and oriented. Her and her spouse reside in [place]. At her baseline, she is independent, and drives. She lives on one level. She indicated that she normally doesn't use any devices, but when she stopped taking her Ibuprofen, she started using her four wheel walker. She has gotten equipment at [facility]. She is set up with outpatient P.T. P: Patient has discharge orders for home today. Kaylen Gonsalves RN/Carding Supervisor Discharge Planning/Care Management CM Discharge Assessment Start: 07/09/21 11:40 Freq: Status: Active Protocol: Document 07/09/21 11:40 (Rec: 07/09/21 11:41 [id number]) Discharge Planning Assessment Assigned Drafting Layout Man Kaylen Gonsalves RN/Carding Supervisor Advance Directives? No History Provided By Patient,Medical Record Prior Living Arrangements House Household Members spouse Type of transporation used prior to Drives own vehicle admit Independent with ADL's Yes Is patient alert and oriented? Yes Caregiver for Another No DME Already Rented / Owned FWW / Walker Patient/Family Preference OP PT Therapy Barriers to Discharge No Discharge Plan Home Whiteboard Updated in Patient Room with Yes name and ext. # of Drafting Layout Man Review Status In Process Next Review Type Continued Stay Review Pre-Anesthesia Assessment Start: 06/27/21 08:45 Freq: Status: Complete Protocol: Document 07/06/21 10:56 CAB (Rec: 06/27/21 09:25 CAB [id number]) Pre-Anesthesia Assessment PAC Comment Reviewed pre-op EKG w/jeanette Bull to proceed Preferred Name Deanna Patient Information Reviewed Via Phone Assessment Assessment Completed With Patient Diagnostic Results BMP/CMP,CBC,EKG Comment Labs/EKG @ 06/09/21, COVID screen @ [facility] 07/06/21 Primary Care Provider Екатерина Underwood Seen Specialist in Last 12 Months Yes Specialist Seen Orthopedist Primary Language Spanish Senior Linux Systems Administrator Required No Height 5 ft 5 in Weight 181 lb Body Mass Index (BMI) 30.1 Hearing Ability Normal Visual Assist Magnifying Glass Dentition Type Teeth, Natural Present Barriers to Learning None Hx Anesthesia Reactions No Hx Family Anesthesia Reaction No Hx Malignant Hyperthermia No Hx Blood Transfusions No Anesthesia Review Requested No alcohol intake current alcohol intake frequency 3 or more drinks per day Smoking Status Former smoker Smoking packs per day 1 how long ago did patient quit smoking Quit age 39 Substance Use Type does not use Pain Present Pain Reported Musculoskeletal Symptoms Abnormal Gait,Difficulty Walking,Joint Pain History of Falling (Recent or History of No ) Patient is completely paralyzed or No completely immobile Mental Status Oriented to own ability Is patient on oxygen? No Does patient have PERRY/SOB No Hx Sleep Apnea No Currently Taking a Beta Chucky No Can You Climb a Flight of Stairs Without Yes SOB Hx Chest Pain No Hx SOB No Hx Syncope or Dizziness No Anti-Coagulant Therapy No Has a Fuller Brush Man No Cardiac Testing No Hx Pacemaker/ICD No Pacemaker Rep Required? No Cardiac Clearance Received Not Applicable Comment Pt very active, uses pedal bike every day x 30 min, walks 3-5 days/week Diet Type At Home Regular dysphagia No Gastrointestinal Symptoms Reflux Urinary Catheter Present No Hx Urinary Self Catheterization No Diabetes No Patient No Lactating No Hx Drug Resistant Organism No Presence of External or Internal Medical No Devices Have you had any close contact with No someone diagnosed with COVID-19? Received a COVID vaccine? Yes Received all doses? Yes Marital Status Lives With spouse Prior Living Arrangements House Number of Floors (Floors) One Floor Support System Spouse Does the Patient Have Assistance After Yes Surgery Patient Discharge Plan Description Return Home Comment Pt advised overnight length of stay per surgeon Feels Safe in Current Environment Yes Been Physically Hurt or Threatened By a No Person in Current Environment Do you have thoughts of harming yourself None or others? Are you currently considering suicide? No Do you have a plan to hurt yourself or No Plan others? Do You Have Any Spiritual Beliefs That No May Affect Your HC Choices? Do You Have Any Cultural Practices That No May Affect Your HC Choices? Comment Agnostic Who Can We Speak to About Patient's Care Family, friends Identifying Code for Release of Patient Declines to issue Information Health Care Proxy/Next of Kin Kulwant () Health Care Proxy Emergency Contact Name Kulwant () Emergency Contact Advance Directives? No Power of Aircraft Cleaner No PAC Instructions Do not shave/clip surgical site,Durable medical equipment ,Medications to take/avoid, Nasal antibiotic,No ETOH/ petroleum product on skin DOS, NPO,Post-op transportation, Sensory aids,Sturdy shoes/ comfortable clothes,Do not bring valuables and remove jewelry
[2021-07-09 14:35] VITALS: BP 120/48; PULSE 73
--- NOTE | 2021-07-09 14:49 | PT.IPTN ---
Current Diagnoses Unilateral primary osteoarthritis, right knee (07/08/21) Presence of unspecified artificial knee joint (07/08/21) Surgery Performed Operation Date: 07/08/21 12:15 Actual Procedures p Total Knee Arthroplasty(Right) - Sergio Cintron MD Physical Therapy Treatment Note M2 PT-IP Current Condition Start: 07/09/21 13:00 Freq: NEEDED Status: Active Protocol: Document 07/09/21 09:55 AB (Rec: 07/09/21 13:14 AB [id number]) Physical Therapy Current Condition Current Condition Evaluation Date 07/09/21 Treatment Diagnosis s/p R TKA; difficulty in walking Onset Date 07/08/21 M3 PT-IP Subjective Start: 07/09/21 13:00 Freq: NEEDED Status: Active Protocol: Document 07/09/21 14:17 KS (Rec: 07/09/21 15:55 KS [id number]) Subjective Physical Therapy Visit Type Type Treatment Note Visit Start Time 14:17 Visit Stop Time 14:49 Total Visit Minutes 32 Notes Spouse present Number of PRODUCT SAFETY TECHNICAL ASSISTANT Visits 1 Physical Therapy Visit Comments Patient Comments agreeable to do PT M4 PT-IP Mobility and Gait Start: 07/09/21 13:00 Freq: NEEDED Status: Active Protocol: Document 07/09/21 14:17 KS (Rec: 07/09/21 15:55 KS [id number]) PT-Transfer Assessment Sit to and From Stand Sit to and from Stand Contact Guard Assistance,1 Person Assistance,Use of Upper Extremities Equipment Transfer Assistive Device Gait Belt,Front Wheeled Walker Orthotic/Prosthetic Devices or Brace: No Transfers Transfer Destination Chair Transfer Technique ambulated Transfer Ability Level of Assist Contact Guard Assistance,1 Person Assistance,Use of Upper Extremities Comments Mobility Comments Pt reclined in chair upon arriva from therapy and BP: 137/68, when sitting BP: 129/ 53, when standing BP: 134/44 and 141/61. Pt denied any dizziness or lightheadedness. She then ambulated ~60 ft w/ FWW and CGA w/ cues for FWW use, quad activation, and stride. Pt returned to room and chair. Reveiwed LE exercises to faciliate ROM and blood flow. Dispensed FWW for pt home use. Pt left in chair w/ all needs in reach. Pt BP: 120/48 when reclined back in chair. Gait Assessment Gait Gait Assistance Required: Contact Guard Assist Distance (Feet) 60 Able to Maintain Weight Bearing Status Yes During Gait Assistive Devices Assistive Device Gait Belt,Front Wheeled Walker Orthotic/Prosthetic Devices or Brace: No Gait Deviations General Gait Pattern Antalgic,Decreased Stride Length,Decreased Feet Clearance Factors Limiting Gait Function Factors Limiting Gait Function Decreased Activity Tolerance, Decreased Strength,Limited Range of Motion,Pain,Poor Balance,Poor Safety Awareness Comments Gait Comments Pt able to improve/normalize gait w/ cues for quad activation and equal step length. PT-Balance Assessment Sitting Balance and Reactions Static Sitting Balance Ability Good Dynamic Sitting Balance Ability Good Standing Balance and Reactions Static Standing Balance Ability Fair Dynamic Standing Balance Ability Fair Device Used FWW M5 PT-IP Objective Assessments Start: 07/09/21 13:00 Freq: NEEDED Status: Active Protocol: Document 07/09/21 09:55 AB (Rec: 07/09/21 13:14 AB [id number]) Orientation Orientation/Cognition Level of Alertness Alert Orientation Name,Place,Situation Language Function Ability No Deficits Noted Safety Awareness Understands Safety Issues Memory Description No Deficits Noted Gross Range of Motion Lower Extremity ROM Impairments R knee extension: ~ 10 deg less to 0 R knee flexion: ~ 60 deg Strength Lower Extremity Strength Assessment Right Impaired Hip 4-/5 Knee 3+/5 Sensation Assessment Sensation Gross Sensation WNL Muscle Tone Muscle Tone WNL Yes M6 PT-IP Treatment Start: 07/09/21 13:00 Freq: NEEDED Status: Active Protocol: Document 07/09/21 14:17 KS (Rec: 07/09/21 15:55 KS [id number]) Physical Therapy Treatment Exercises Exercises Ankle Pumps,Gluteal Sets,Heel Slides Education Education Provided Precautions,Weight Bearing Status,Post-Op Packet,Safety M7 PT-IP Assessment and Plan Start: 07/09/21 13:00 Freq: NEEDED Status: Active Protocol: Document 07/09/21 14:17 KS (Rec: 07/09/21 15:55 KS [id number]) PT Summary Assessment and Plan Potential Rehabilitation Potential Good Status of Condition at Evaluation Evolving Summary Impairments Pain,ROM,Strength,Balance, Coordination,Sensation,Tone, Cognition,Bed Mobility, Transfers,Gait,Activity Tolerance Progress Towards Goals Progressing Toward Goals Assessment Summary Pt CGA for transfers and ambulation, however did not assess bed mobility this visit . She was able to ambulate ~60 ft w/ FWW CGA and cues but will need to increase ambulatory distance and perform bed mobility prior to d/c w/ caregiver training if needed. She will benefit from outpatient rehab to regain strength and ROM. Goals Bed Mobility Goal Independent Transfer Goal Independent,Front Wheeled Walker Gait Goal Independent,Front Wheel Walker Gait Distance 300 Other Goals improve ambulation using 4WW SBA 300 ft Days to Meet Goals 5 Frequency of Treatment Frequency Of Treatment Twice a Day Treatment Plan Physical Therapy Treatment Plan Bed Mobility Training,Transfer Training,Gait Training, Therapeutic Exercise,Balance Retraining,Post Op Education, Discharge Planning,Hot or Cold Pack,Neuromuscular Re-ed, Coordination Retraining,Manual Therapy Other Recommendations and Next Treatment Check BP since pt was Focus previously orthostatic, Bed Mobility, Increased ambulation , review exercises, assess if caregiver training is necessary. Weight Bearing Status Weight Bearing Status Weight Bear as Tolerated Allowed Weight Bearing Amount (enter % RLE WBAT or #) (%) Recommendations To Nursing Amount of Assist Needed 1 Person Assist Discharge Recommendations PT Discharge Recommendations Home with Assistance, Outpatient PT Equipment Needed for Home Before FWW Discharge Transportation Needs at Discharge Private Vehicle
--- NOTE | 2021-07-09 15:49 | PC.NURSE ---
patient worked with PT, BP dropped to 88/44, slightly light headed, BP slowly increased to low 100's. kept her post op fluid going per provider. BP improved. pt drank plenty of water. However, she does not feel comfortable going home. PT also would like to work with her tomorrow. Called PA, canceled DC orders for today.
[2021-07-09] MEDS: TRAZODONE 50 MG TABLET PO (20:06)
[2021-07-09 20:34] VITALS: BP 115/44; PULSE 68; RESP 17; TEMP 36.6; O2SAT 99
[2021-07-10] MEDS: PANTOPRAZOLE DR 20 MG TABLET PO (05:18)
[2021-07-10] MEDS: IBUPROFEN 400 MG TABLET PO ×2 (05:18→08:18)
[2021-07-10 05:25] VITALS: BP 147/48; PULSE 79; RESP 16; TEMP 36.2; O2SAT 96
[2021-07-10 08:00] VITALS: BP 151/43; PULSE 68; RESP 19; TEMP 35.5; O2SAT 100
[2021-07-10] MEDS: ASPIRIN EC 81 MG TABLET PO (08:18)
[2021-07-10] MEDS: DOCUSATE 100 MG CAPSULE PO (08:18)
[2021-07-10] MEDS: EZETIMIBE 10 MG TABLET PO (08:18)
[2021-07-10] MEDS: OXYCODONE IR 10 MG TABLET PO (08:19)
[2021-07-10] MEDS: ACETAMINOPHEN 325 MG TABLET 650 MG PO (08:21)
[2021-07-10] MEDS: SODIUM CHLORIDE 0.9% FLUSH 10 ML IV (08:23)
--- NOTE | 2021-07-10 09:03 | P.DS_ITS ---
History of Present Illness History of Present Illness Date Patient Seen: 07/10/21 Time Patient Seen: 09:04 Chief complaint: OPB Narrative: [address] [address] Operative Note Provider:Sergio Crockett MD Operative Date/Time/Diagnoses Date of procedure: 07/08/21 Time of procedure: 14:45 Pre-op diagnosis: Right knee post traumatic osteoarthritis Post-op diagnosis: same Procedure & Clinicians Procedure: 1. Right total knee replacement 2. Removal of tibial staple Same procedure as scheduled: Yes Indications: The patient has had progressively worsening right knee pain with radiographic changes consistent with arthritis. Non-operative management has failed and the patient has requested total knee replacement. The risks, benefits and alternatives to surgery were discussed with the patient prior to proceeding. Risks discussed included, but were not limited to, failure to relieve pain, stiffness, infection, nerve damage, deep venous thrombosis, pulmonary embolism, stroke, coma, heart attack, permanent paralysis and , as well as the pote ntial need for eventual revision of the prosthetic. Operative Notes Findings: Severe lateral and patellofemoral osteoarthritis.? The tibial staple interfered with placement of the tibial prosthetic and needed to be removed. Closure Type: primary Specimen(s): none sent Prosthetic devices, grafts, tissues, transplants, or devices: Implants used in this procedure were manufactured by the [employer] and included the BCS II Journey total knee replacement with a size 5 right Oxinium femur, a size 4 right non porous tibial base plate, a 10 mm cross- linked polyethylene tibial insert a 32 mm oval Kelli II patella. Applied: implant(s) Estimated Blood Loss (mL): 50 Tourniquet time (min): 53 Discharge Providers Provider Date of admission: 07/08/2021 Discharge Date: 07/10/21 Primary care physician: Екатерина Underwood MD Consults: 07/08/21 16:00 Consult to Discharge Planning Routine Comment: Consult to Physical Therapy Evaluate & Treat Comment: Physician Instructions: postop TKA protocol 07/09/21 10:48 Consult to Physical Therapy Evaluate & Treat Comment: Physician Instructions: Dispense front wheeled walker Discharge provider: Sonya Alvarado PA-C Summary Hospital Course Discharge Diagnosis: 1) s/p right total knee arthroplasty 2) hypotension Hospital Course: Post op course c/b episode of symptomatic hypotension following physical therapy on POD# 1. Diastolic pressure remained low following this. Amlodipine was held for the remainder of hospital stay. On POD# 2, patient was feeling better but wanted more work with physical therapy prior to discharge. Adequate pain control with oxycodone, acetaminophen, and ibuprofen. Status at Discharge Cognitive/behavioral status at discharge: at baseline, oriented Exam Vital Signs (past 8 hours): - 07/10/21 05:25 / 08:00 Temperature 97.1 F L 95.9 F L Pulse Rate 79 68 Respiratory Rate 16 19 Blood Pressure 147/48 H 151/43 H Pulse Oximetry 96 100 Oxygen Delivery Method Room Air Oxygen Flow Rate 0 Narrative Exam Narrative: 5/5 strength in quadriceps, hamstrings, dorsiflexors, plantarflexors bilaterally.? Sensation to light touch intact in BLE.? Calves soft, compressible, and nontender without palpable cords or masses. Objective Labs Result Diagrams: 07/09/21 07:15 [facility] Medical History (Updated 07/08/21 @ 11:00 by Aruna Riddle RN) Easy bruisability GERD (gastroesophageal reflux disease) HLD (hyperlipidemia) HTN (hypertension) Osteoarthritis Sciatica Surgical History (Updated 07/09/21 @ 09:15 by Sonya Alvarado PA-C) Status post hysterectomy Status post knee surgery Family History (Updated 07/31/16 @ 00:00 by Conversion Provider) Brother Age: 72 Hypertension High cholesterol Brother Age: 73 Hypertension High cholesterol Father Cancer Hypertension High cholesterol Grandmother Hypertension Stroke Mother Age: 96 Hypertension High cholesterol Social History marital status: number of children: 2 household members: spouse lives independently: Yes caregiver/support person: No housing: house Smoking Status: Former smoker second hand exposure: No alcohol intake: current substance use type: does not use Discharge Assessment & Plan Assessment and Plan Assessment: 1) S/p right total knee arthroplasty. Recovery WNL. 2) Acute blood loss anemia following surgery. Asymptomatic, intervention not needed at this time. 3) Obesity Plan of Treatment: Patient to discharge home after cleared by physical therapy. Continue aspirin 81 mg BID x 6 weeks for VTE prophylaxis. Continue to hold amlodipine until evaluation by PCP. Discharge Plan Discharge Plan Patient Disposition: Home Discharge orders & Medications Discharge Orders: Discharge (Order); Ordered 07/10/21 Ordered By: Sonya Alvarado Prescriptions: New acetaminophen 325 mg Tablet 650 mg PO TID PRN (Reason: pain) Qty: 90 0RF aspirin 81 mg Tablet,Delayed Release (Dr/Ec) 81 mg PO BID Qty: 90 0RF docusate sodium 100 mg Capsule 100 mg PO BID PRN (Reason: constipation associated with opioids) Qty: 60 1RF hydroxyzine pamoate 25 mg Capsule 25 mg PO Q6HR PRN (Reason: muscle spasm) Qty: 60 0RF ibuprofen 400 mg Tablet 400 mg PO Q4HR PRN (Reason: pain) Qty: 90 0RF oxycodone 5 mg Tablet 5 mg PO Q4-6H PRN (Reason: severe pain (scale score 7-10)) Qty: 60 0RF (DME) walker Misc See Rx Instructions .Route Qty: 1 0RF Rx Instructions: Front wheeled walker Continued ezetimibe 10 mg tablet See Rx Instructions .ROUTE .COMPLEX Qty: 90 2RF Dose Instruction: TAKE ONE TABLET BY MOUTH ONE TIME DAILY Rx Instructions: TAKE ONE TABLET BY MOUTH ONE TIME DAILY trazodone 50 mg tablet See Rx Instructions .ROUTE .COMPLEX Qty: 30 7RF Dose Instruction: TAKE ONE TABLET BY MOUTH AT BEDTIME NEEDED FOR INSOMNIA Label Comments: Pt states taking 100mg daily at bedtime Rx Instructions: TAKE ONE TABLET BY MOUTH AT BEDTIME NEEDED FOR INSOMNIA omeprazole 20 mg Capsule,Delayed Release(Dr/Ec) 20 mg PO DAILY 0RF Discontinued amlodipine 10 mg tablet See Rx Instructions .ROUTE .COMPLEX Qty: 90 2RF Dose Instruction: TAKE ONE TABLET BY MOUTH ONE TIME DAILY Rx Instructions: TAKE ONE TABLET BY MOUTH ONE TIME DAILY ibuprofen 200 mg Capsule 200 mg PO BID 0RF Follow up/Referrals: Екатерина Underwood MD [Primary Care Provider] - (Make appt w/ Dr Kj DE LEON to discuss hypotension. Do not restart amlodipine until seen by Dr Underwood.) Sergio Cintron MD [Physician] - (Follow up as scheduled at [facility] office on 07/18/2021 @ 10:30 am) Diet/Activity/Treatments Diet: Diet as Tolerated Activity: Weight bearing as tolerated to right lower extremity. Use walker when ambulating for stability. Follow up with outpatient physical therapy as scheduled. Cold/Heat Therapy: Ice to knee for 15 minutes at a time as needed for pain. Skin/Wound/Dressing Care Report to your healthcare provider any signs of infection, such as:: chills, fever, night sweats, increased pain, unusual drainage and unusual redness Dressing: Can remove rahel wrap for comfort/showering. Leave Aquacel dressing in place until follow up appointment. May shower with Aquacel on; pat dry immediately after. No bathing or otherwise soaking incision. Call office if dressing becomes saturated inside. Visit Report/Discharge Packet Instructions: DI for Knee Replacement Stand Alone Forms: Surgery Discharge Discharge Data Primary Care Provider: Екатерина Underwood Attending Provider: Sergio Cintron
--- NOTE | 2021-07-10 10:07 | PT.IPTN ---
Current Diagnoses Unilateral primary osteoarthritis, right knee (07/08/21) Presence of unspecified artificial knee joint (07/08/21) Surgery Performed Operation Date: 07/08/21 12:15 Actual Procedures p Total Knee Arthroplasty(Right) - Sergio Cintron MD Physical Therapy Treatment Note M2 PT-IP Current Condition Start: 07/09/21 13:00 Freq: NEEDED Status: Active Protocol: Document 07/09/21 09:55 AB (Rec: 07/09/21 13:14 AB [id number]) Physical Therapy Current Condition Current Condition Evaluation Date 07/09/21 Treatment Diagnosis s/p R TKA; difficulty in walking Onset Date 07/08/21 M3 PT-IP Subjective Start: 07/09/21 13:00 Freq: NEEDED Status: Active Protocol: Document 07/10/21 10:07 AW (Rec: 07/10/21 11:03 AW [id number]) Subjective Physical Therapy Visit Type Type Treatment Note Visit Start Time 09:41 Visit Stop Time 10:07 Total Visit Minutes 26 Notes Spouse present Number of SLUDGE CONTROL ATTENDANT Visits 0 Physical Therapy Visit Comments Patient Comments agreeable to do PT Therapy Pain Assessment Pain When Pain Assessed During Mobility Pain Present Pain Present Pain Reported Location right knee Description Aching,With Movement Pain Management Techniques Modification of Treatment,Re- positioning,Timing of Activity with Medications M4 PT-IP Mobility and Gait Start: 07/09/21 13:00 Freq: NEEDED Status: Active Protocol: Document 07/10/21 10:07 AW (Rec: 07/10/21 11:03 AW [id number]) PT-Bed Mobility Assessment Supine to Sit Supine to Sit Standby Assistance Sit to Supine Sit to Supine Minimal Assistance Scooting Scooting to Edge of Bed Standby Assistance PT-Transfer Assessment Sit to and From Stand Sit to and from Stand Standby Assistance,Use of Upper Extremities Equipment Transfer Assistive Device Gait Belt,Front Wheeled Walker Orthotic/Prosthetic Devices or Brace: No Transfers Transfer Destination Chair Transfer Technique ambulated with FWW Transfer Ability Level of Assist Standby Assistance,Use of Upper Extremities Comments Mobility Comments Pt was sitting up in the chair as PT arrived, reporting a foggy head feeling. BP was 152/69 HR 72. She stood SBA and ambulated to the toilet, using grab bar to transfer SBA . After void, pt stood again SBA with grab bar and agreed to ambulate in the halls. Pt was safe with FWW SBA. On return to the room, pt completed sit <> supine and then transferred back to the chair. BP was stable and pt denied lightheadedness. Gait Assessment Gait Gait Assistance Required: Standby Assistance Distance (Feet) 220 Able to Maintain Weight Bearing Status Yes During Gait Assistive Devices Assistive Device Gait Belt,Front Wheeled Walker Orthotic/Prosthetic Devices or Brace: No Gait Deviations General Gait Pattern Antalgic,Decreased Stride Length,Decreased Feet Clearance Factors Limiting Gait Function Factors Limiting Gait Function Decreased Activity Tolerance, Decreased Strength,Limited Range of Motion,Pain Comments Gait Comments Spouse followed with w/c. Step lengths and stance time improved with distance and cues. Pt reported foggy head improved with mobility. Stair Climbing Assessment Comments Stair Climbing Comments No stairs at home. PT did review sequencing for curbs but pt did not practice. PT-Balance Assessment Sitting Balance and Reactions Static Sitting Balance Ability Good Dynamic Sitting Balance Ability Good Standing Balance and Reactions Static Standing Balance Ability Good Dynamic Standing Balance Ability Fair Device Used FWW M5 PT-IP Objective Assessments Start: 07/09/21 13:00 Freq: NEEDED Status: Active Protocol: Document 07/09/21 09:55 AB (Rec: 07/09/21 13:14 AB [id number]) Orientation Orientation/Cognition Level of Alertness Alert Orientation Name,Place,Situation Language Function Ability No Deficits Noted Safety Awareness Understands Safety Issues Memory Description No Deficits Noted Gross Range of Motion Lower Extremity ROM Impairments R knee extension: ~ 10 deg less to 0 R knee flexion: ~ 60 deg Strength Lower Extremity Strength Assessment Right Impaired Hip 4-/5 Knee 3+/5 Sensation Assessment Sensation Gross Sensation WNL Muscle Tone Muscle Tone WNL Yes M6 PT-IP Treatment Start: 07/09/21 13:00 Freq: NEEDED Status: Active Protocol: Document 07/10/21 10:07 AW (Rec: 07/10/21 11:03 AW [id number]) Physical Therapy Treatment Exercises Exercises Quad Sets,Heel Slides,Short Arc Quads,Passive Knee Extension Hang,Seated Knee Flexion/Extension Knee ROM Measurement 0-100 in sitting Education Education Provided Weight Bearing Status,Post-Op Packet,Safety Equipment Issued Equipment Type and Company FWW dispensed from [employer]. Other Treatments Other Treatment Performed Reviewed all ther ex and pt did perform with min cues. Pt' s spouse was able to don/doff gait belt and pt felt more secure with it on. M7 PT-IP Assessment and Plan Start: 07/09/21 13:00 Freq: NEEDED Status: Active Protocol: Document 07/10/21 10:07 AW (Rec: 07/10/21 11:03 AW [id number]) PT Summary Assessment and Plan Potential Rehabilitation Potential Good Status of Condition at Evaluation Evolving Summary Impairments Pain,ROM,Strength,Balance, Coordination,Sensation,Tone, Cognition,Bed Mobility, Transfers,Gait,Activity Tolerance Progress Towards Goals Progressing Toward Goals Assessment Summary Pt SBA for transfers and ambulation with FWW. Her spouse was able to manage gait belt and provide assist. Pt has good safety awareness adn understanding of post-op exercise prescription. She will benefit from outpatient rehab to regain strength and ROM. Pt is safe to return home with assist and outpatient PT . Goals Bed Mobility Goal Independent Transfer Goal Independent,Front Wheeled Walker Gait Goal Independent,Front Wheel Walker Gait Distance 300 Other Goals improve ambulation using 4WW SBA 300 ft Days to Meet Goals 5 Frequency of Treatment Frequency Of Treatment Twice a Day Treatment Plan Physical Therapy Treatment Plan Bed Mobility Training,Transfer Training,Gait Training, Therapeutic Exercise,Balance Retraining,Post Op Education, Discharge Planning,Hot or Cold Pack,Neuromuscular Re-ed, Coordination Retraining,Manual Therapy Weight Bearing Status Weight Bearing Status Weight Bear as Tolerated Allowed Weight Bearing Amount (enter % RLE WBAT or #) (%) Recommendations To Nursing Amount of Assist Needed Standby Assistance Discharge Recommendations PT Discharge Recommendations Home with Assistance, Outpatient PT Equipment Needed for Home Before FWW Discharge Transportation Needs at Discharge Private Vehicle
--- NOTE | 2021-07-10 11:44 | PC.NURSE ---
Pt. pain controlled with po pain meds, cms intact, drsg with rahel wrap secure and in place. Ambulating with PT and moving well. DC home with verbal and written instructions given.
== END 2021-07-10 11:40 | disposition home or self-care (01) ==
LOC: OR 07-10 14:19 → AC 07-10 14:19
PROVIDERS: Admitting Provider Orthopaedic Surgery; PCP Family Medicine; Referring Provider Orthopaedic Surgery; Visit Provider Orthopaedic Surgery
PROC: 0SRC0JZ Replacement of Right Knee Joint with Synthetic Substitute, Open Approach (ICD-10-PCS; CPT 27447; principal; 2021-07-08 12:15)
DX: M17.11 Unilateral primary osteoarthritis, right knee (principal); I95.89 Other hypotension; E78.5 Hyperlipidemia, unspecified; I10 Essential (primary) hypertension; E66.9 Obesity, unspecified; K21.9 Gastro-esophageal reflux disease without esophagitis; Z68.30 Body mass index [BMI] 30.0-30.9, adult; Z23 Encounter for immunization
CPT/HCPCS: 27447; 36415; 64450; 73560; 85014; 85018; 90471; 90662; 97110; 97116; 97162; 97530; C1776; G0378; C9290; J0171; J0690; J1100; J2250; J2270; J2704

== ENCOUNTER → 2021-12-07 08:20 | Outpatient (CLI) | payer MEDICARE, OTHER, SELFPAY ==
[2021-07-08 16:00] VITALS: BMI 30.1
--- NOTE | 2021-12-07 | DI.MG.S_ITS ---
BILATERAL DIGITAL SCREENING MAMMOGRAM 3D/2D WITH CAD: 12/07/2021 CLINICAL: Routine screening. Family history of breast cancer. Comparison is made to exams dated: 10/15/2020 mammogram, 10/09/2018 mammogram, and 08/07/2017 mammogram - [facility]. There are scattered fibroglandular elements in both breasts. Current study was also evaluated with a Computer Aided Detection (CAD) system. There are benign intramammary nodes in the right breast. No significant masses, calcifications, or other findings are seen in either breast. There has been no significant interval change. IMPRESSION: BENIGN There is no mammographic evidence of malignancy. A 1 year screening mammogram is recommended. This exam was interpreted at Station ID: [id number]. NOTE: For mammograms, a report in lay terms will be sent to the patient. Approximately 15% of breast malignancies will not be visualized mammographically. In the management of a palpable breast mass, a negative mammogram must not discourage biopsy of a clinically suspicious lesion. Electronically Signed By: Celestino Paul M.D., jr/tani:12/07/2021 11:36:19 letter sent: Normal Exam ACR BI-RADS Category 2: Benign Finding(s) [id number]
== END ==
PROVIDERS: PCP Family Medicine; Referring Provider Family Medicine; Visit Provider Family Medicine
DX: Z12.31 Encounter for screening mammogram for malignant neoplasm of breast (principal); Z80.3 Family history of malignant neoplasm of breast
CPT/HCPCS: 77063; 77067

== ENCOUNTER → 2022-03-30 09:07 | Outpatient (CLI) | payer MEDICARE, OTHER, SELFPAY ==
[2021-07-08 16:00] VITALS: BMI 30.1
[2022-03-30 10:36] LABS: Creatinine Urine Random 61.8 mg/dL
[2022-03-30 10:42] LABS: Microalbumin Urine Random < 0.6 mg/dL (0-1.6)
[2022-03-30 11:07] LABS: Alanine Aminotransferase 19 IU/L (<35); Albumin 3.9 g/dL (3.5-5.0); Albumin Globulin Ratio 1.3 (1.0-2.8); Alkaline Phosphatase 99 U/L (38-126); Aspartate Aminotransferase 23 IU/L (14-36); BUN Creatinine Ratio 20.5 (6-22); Bilirubin Total 0.4 mg/dL (0.2-1.3); Blood Urea Nitrogen 17 mg/dL (7-17); Calcium 9.3 mg/dL (8.4-10.2); Carbon Dioxide 29 mmol/L (22-32); Chloride 100 mmol/L (98-107); Cholesterol 203 mg/dL (140-199); Estimated Glomerular Filt Rate > 60 mL/min (>60); Globulin 2.9 g/dL (1.7-4.1); Glucose 92 mg/dL (80-110); HDL Cholesterol 47 mg/dL (40-60); HEMOLYSIS < 15 (0-50); LDL Cholesterol Calculated 114 mg/dL (<100); Sodium 139 mmol/L (137-145); Total Protein 6.8 g/dL (6.3-8.2); Triglycerides 211 mg/dL (35-150)
== END ==
PROVIDERS: PCP Family Medicine; Referring Provider Family Medicine; Visit Provider Family Medicine
DX: I10 Essential (primary) hypertension (principal)
CPT/HCPCS: 36415; 80053; 80061; 82043; 82570

== ENCOUNTER → 2023-01-31 13:02 | Outpatient (CLI) | payer MEDICARE, OTHER, SELFPAY ==
[2021-07-08 16:00] VITALS: BMI 30.1
--- NOTE | 2023-01-31 13:03 | DI.MG.S_ITS ---
BILATERAL DIGITAL SCREENING MAMMOGRAM 3D/2D WITH CAD: 01/31/2023 CLINICAL: Routine screening. Family history of breast cancer. Comparison is made to exams dated: 12/07/2021 mammogram, 10/15/2020 mammogram, and 10/09/2018 mammogram - [facility]. There are scattered areas of fibroglandular density in both breasts (category b / 25%-50% glandular tissue). Current study was also evaluated with a Computer Aided Detection (CAD) system. There are benign intramammary nodes in the right breast. No significant masses, calcifications, or other findings are seen in either breast. There has been no significant interval change. IMPRESSION: BENIGN There is no mammographic evidence of malignancy. A 1 year screening mammogram is recommended. Based on the Tyrer Cuzick model (a risk assessment model) the patient's lifetime risk is 4.8% and her 10 year risk is 2.6%. According to the ACR, ACS, and NCCN guidelines, an annual breast MRI exam along with mammogram is recommended if the patient's lifetime risk is 20% or greater. This exam was interpreted at Station ID: [id number]. NOTE: For mammograms, a report in lay terms will be sent to the patient. Approximately 15% of breast malignancies will not be visualized mammographically. In the management of a palpable breast mass, a negative mammogram must not discourage biopsy of a clinically suspicious lesion. Electronically Signed By: Juan Pablo sánchez/tani:02/01/2023 13:53:25 letter sent: Normal Exam ACR BI-RADS Category 2: Benign Finding(s) [id number]
== END ==
PROVIDERS: PCP Family Medicine; Referring Provider Family Medicine; Visit Provider Family Medicine
DX: Z12.31 Encounter for screening mammogram for malignant neoplasm of breast (principal); Z80.3 Family history of malignant neoplasm of breast
CPT/HCPCS: 77063; 77067

== ENCOUNTER → 2023-04-03 08:29 | Outpatient (CLI) | payer MEDICARE, OTHER, SELFPAY ==
[2021-07-08 16:00] VITALS: BMI 30.1
[2023-04-03 09:11] LABS: Add Manual Diff / Slide Review NO; Basophils Absolute Auto 0 /uL (0-100); Eosinophils Absolute Auto 100 /uL (0-450); Eosinophils Percent Auto 3.2 % (2-4); Hematocrit 37.7 % (36-46); Lymphocytes Absolute Auto 1400 /uL (1100-4500); Lymphocytes Percent Auto 31.5 % (25-40); Mean Corpuscular HGB Conc 34.4 % (30-36); Mean Corpuscular Hemoglobin 31.6 PG (26-34); Mean Corpuscular Volume 91.9 fL (80-100); Monocytes Absolute Auto 300 /uL (0-900); Monocytes Percent Auto 7.1 % (3-14); Neutrophils Absolute Auto 2500 /uL (1500-7000); Neutrophils Percent Auto 57.2 % (50-75); Platelet Count 273 X10^3/uL (150-400); Red Cell Distribution Width 13.1 % (11.6-14.8); White Blood Cell Count 4.4 X10^3/uL (4.5-11.0)
[2023-04-03 09:36] LABS: Alanine Aminotransferase 23 IU/L (<35); Albumin 4.1 g/dL (3.5-5.0); Albumin Globulin Ratio 1.4 (1.0-2.8); Alkaline Phosphatase 73 U/L (38-126); Aspartate Aminotransferase 23 IU/L (14-36); BUN Creatinine Ratio 19.3 (6-22); Bilirubin Total 0.2 mg/dL (0.2-1.3); Blood Urea Nitrogen 21 mg/dL (7-17); Calcium 9.9 mg/dL (8.4-10.2); Carbon Dioxide 27 mmol/L (22-32); Chloride 102 mmol/L (98-107); Cholesterol 224 mg/dL (140-199); Estimated Glomerular Filt Rate 55 mL/min (>60); Globulin 2.9 g/dL (1.7-4.1); Glucose 95 mg/dL (80-110); HDL Cholesterol 65 mg/dL (40-60); HEMOLYSIS < 15 (0-50); LDL Cholesterol Calculated 130 mg/dL (<100); Potassium 4.2 mmol/L (3.4-5.1); Sodium 138 mmol/L (137-145); Triglycerides 146 mg/dL (35-150)
[2023-04-03 10:15] LABS: Creatinine Urine Random 136.2 mg/dL
[2023-04-03 10:19] LABS: Microalbumi Creatinin Ratio Ur 6.6 ug/mg CR (<30); Microalbumin Urine Random 0.9 mg/dL (0-1.6)
== END ==
PROVIDERS: PCP Family Medicine; Referring Provider Family Medicine; Visit Provider Family Medicine
DX: I10 Essential (primary) hypertension (principal); D64.9 Anemia, unspecified
CPT/HCPCS: 36415; 80053; 80061; 82043; 82570; 85025

== ENCOUNTER → 2023-10-25 10:25 | Outpatient (CLI) | payer MEDICARE, OTHER, SELFPAY ==
[2021-07-08 16:00] VITALS: BMI 30.1
== END ==
PROVIDERS: PCP Family Medicine; Referring Provider Podiatrist; Visit Provider Podiatrist
DX: I10 Essential (primary) hypertension (principal)
CPT/HCPCS: 93005

== ENCOUNTER 2023-11-23 10:57 | Day surgery (SDC) | payer MEDICARE, OTHER, SELFPAY ==
[2021-07-08 16:00] VITALS: BMI 30.1
[2023-11-15 08:29] VITALS: BMI 30.4
[2023-11-23] VITALS (9 sets, daily range): BP systolic 131–148; BP diastolic 58–78; PULSE 71–89; RESP 10–16; TEMP 36.4–36.6; O2SAT 95–99; BMI 30.7
[2023-11-23] MEDS: LACTATED RINGERS 1,000 ML 42 ML IV (11:44)
[2023-11-23] MEDS: ACETAMINOPHEN 325 MG TABLET 975 MG PO (11:48)
--- NOTE | 2023-11-23 12:02 | PM.PREOP ---
Pre-operative Note Interval Note History & Physical reviewed/Exam performed by Physician: Yes Changes to H&P: No
--- NOTE | 2023-11-23 12:02 | PM.OP.1 ---
Operative Date/Time/Diagnoses Date of procedure: 11/23/23 Time of procedure: 12:03 Pre-op diagnosis: Left foot bunion pain, hammertoe, arthritis Post-op diagnosis: same Procedure & Clinicians Procedure: Left first metatarsophalangeal arthrodesis, second metatarsal osteotomy, and second toe proximal interphalangeal arthrodesis Same procedure as scheduled: Yes Indications: 68-year-old painful bunion and soreness with contracture on the 2nd toe as well. Conservative measures failed to alleviate her pain and she wished to have surgical intervention at this time. We spoke with the risks of potential complications as well as the expected outcomes and alternatives areas consent is given and there are no contraindications to the procedure at this time. Surgeon: Roz Sunshine Click Yes if Unassisted: Yes Anesthesia Type: General Operative Notes Closure Type: primary Specimen(s): none sent Prosthetic devices, grafts, tissues, transplants, or devices: [place] 1st MTP plate, 4.0 cannulated screw, 2.7 locking and non-locking screws (5), 2.0 cannulated screw. 0.045 k-wire. Estimated Blood Loss (mL): 30 Blood products transfused: none Tourniquet time (min): 121 Procedure in detail: The patient was brought to the operating room and placed on the operating table in the supine position. A tourniquet was placed about the patient's left thigh. After induction of general anesthesia the foot and ankle were prepped and draped in the usual aseptic manner. The tourniquet was inflated. 1. Incision was made over the dorsal aspect of the left 1st metatarsophalangeal joint. The incision was deepened through subcutaneous tissues being careful to identify and retract all vital neurovascular structures. All bleeders were cauterized and ligated necessary. Degenerative exostoses were noted to the dorsal medial eminence of the 1st metatarsophalangeal joint. The capsule was opened dorsal and medial aspect. The joint showed some loss of the articular cartilage on the 1st metatarsal plantar and central head. A guidewire was placed in the 1st metatarsal head and a reamer was used to resect the cartilage from the 1st metatarsal head and prepare the joint. The same procedure was performed to the proximal phalanx base. These guidewires were then removed. A saw was used to resect the medial eminence enlargement as well as some of the more prominent areas of spurring at the 1st metatarsophalangeal joint. Subchondral drilling was performed to either side with the guidewire as well as some fish scaling using a small curette. The area was irrigated with copious amount of normal sterile saline. Temporary fixation across the joint was placed with a guidewire and this was checked under mini C-arm to be in appropriate alignment. A plate was chosen and any further reduction of prominences dorsally was performed with a rasp and rongeur. Using the aid of fluoroscopy, the guide wire was used as cannulation for the drill for a 4.0 screw from the distal medial to proximal lateral 1st metatarsal phalangeal joint. Confirmed appropriate in all 3 planes, a partially threaded screw was placed and the guidewire removed. Good strength and reduction of the former joint. Loading of the forefoot showed good alignment. Plate was placed and with the aid of fluoroscopy and a series of locking screws and a nonlocking screw were placed across the plate and steadied the joint well. This was checked on C-arm. The area is irrigated with copious amounts normal sterile saline. 2. Next, attention was directed to the 2nd metatarsal head where an incision was made over the dorsal 2nd metatarsophalangeal joint. The incision was deepened through subcutaneous tissues being careful to identify and retract all vital neural and vascular structures. All bleeders were cauterized and ligated as necessary. Once the capsule was entered, the metatarsal head and neck were exposed. This showed significant dorsal spurring and flattening of the second metatarsal head, areas of flattening of the cartilage and a ridge of cartilage loss on most medial articular surface. A rongeur was used to reduce the spurring on either side of the dorsal joint. Gentle use of a McGlamry elevator allowed for plantar adhesions to release at the metatarsophalangeal joint. A saw was used to create a horizontal osteotomy across the dorsal articular surface of the second metatarsal head. The metatarsal head and pushed back proximally to a point where there was more of an equal parabola length. This was temporarily fixated with a guidewire. The distal dorsal flare of the cut that is usually gently trimmed at this point came off on it's own due to the friable nature of the degerative bone. The area was irrigated with normal saline. Using standard AO technique, a 2-0 screw was placed across the osteotomy, angled slightly due to the minimal amount of strong cortical bone dorsally distally. Guidewire was removed this was checked under mini C-arm and strength was good as well as compression and alignment. 3. Next, the incision was continued distally over the second distal and proximal interphalangeal joints dorsally. The incision was deepened through subcutaneous tissues being careful to identify and retract all vital neural and vascular structures. All bleeders were cauterized and ligated as necessary. A transection of the extensor tendon at the distal and proximal interphalangeal joints was performed. A saw was used to resect the base of the intermediate phalanx and the head of the proximal phalanx. The distal phalanx was not resected but just mobilized to allow for k-wire placement. Under the aid of mini C-arm, the 0.045 k-wire was placed in the base of the intermediate phalanx and out the distal tip of the toe. This was retrograded back across the proximal phalanx. Excess distal wire was removed after careful bending as it exited the toe, and pin cap was placed. Tourniquet was deflated, a prompt hyperemic response was seen to the foot. The extensor tendon was repaired using 3-0 Vicryl. The forefoot and toes were loaded and in good alignment. The tip of toe where the wire was exiting was dressed with triple antibiotic ointment. The tourniquet was deflated and prompt hyperemic response was seen to the foot. No motion was noted at the former first metatarsophalangela joint. Subcutaneous closure was performed using Vicryl and nylon was used to close the skin on all incisions. A sterile lightly compressive dressing was placed on the foot and she was placed in her postoperative boot. She was transferred to the PACU with vital signs stable and vascular status intact. Complications: none Post-operative Condition: stable Disposition: PACU Plan for aftercare: Following a period of postoperative monitoring, the patient will be discharged to home on written and oral postoperative instructions including keeping the dressing dry and intact, no weight to the surgical foot, icing and elevating the foot when seated home. DVT prevention techniques have been reviewed. For the 1st postoperative visit the dressing will be changed and close to the fourth postoperative week will be post operative x-ray of the foot.
[2023-11-23] MEDS: CEFAZOLIN 2 GM/100 ML PREMIX 100 ML IV (12:15)
--- NOTE | 2023-11-23 12:34 | SUR.OPER ---
Supine on padded OR bed, head on pillow, arms secured on padded arm boards at <90 degrees abduction, legs uncrossed, safety belt at thigh, tape over blanket over lower non operative leg,bump under left hip.
[2023-11-23] MEDS: NEOMYCIN/POLYMYXIN/BACITRA UD OINT 1 EACH TOP (14:27)
[2023-11-23] MEDS: BUPIVACAINE 0.5% (PF) 30 ML VIAL INJ (15:10)
[2023-11-23] MEDS: OXYCODONE IR 5 MG TABLET PO (15:46)
== END 2023-11-23 16:40 | disposition home or self-care (01) ==
PROVIDERS: PCP Family Medicine; Referring Provider Podiatrist; Visit Provider Podiatrist
PROC: (CPT 28750; principal; 2023-11-23 12:30)
DX: M20.12 Hallux valgus (acquired), left foot (principal); M21.612 Bunion of left foot; M20.42 Other hammer toe(s) (acquired), left foot; M19.072 Primary osteoarthritis, left ankle and foot
CPT/HCPCS: 28750; 28308; 28285; C1713; J0690; J1100; J1170; J1885; J2405; J2704

== ENCOUNTER → 2024-01-03 12:19 | Outpatient (CLI) | payer MEDICARE, OTHER, SELFPAY ==
[2021-07-08 16:00] VITALS: BMI 30.1
--- NOTE | 2024-01-03 12:20 | DI.RAD.S_ITS ---
PROCEDURE: XR CHEST 2V INDICATIONS: Cough TECHNIQUE: 2 views of the chest were acquired. COMPARISON: None. FINDINGS: Surgical changes and devices: None. Lungs and pleura: Perihilar fullness, and possible right infrahilar opacity are present. There is peribronchial thickening. No pleural effusions. Mediastinum: Normal heart size Bones and chest wall: Degenerative changes IMPRESSION: Perihilar fullness and possible mild right infrahilar opacity. Peribronchial thickening. These findings may be infectious/inflammatory, however surveillance radiograph or CT imaging is suggested. Dictated by: Cash De Luna M.D. on 01/03/2024 at 17:11 Approved by: Cash De Luna M.D. on 01/03/2024 at 17:11
== END ==
PROVIDERS: PCP Family Medicine; Referring Provider Nurse Practitioner Family; Visit Provider Nurse Practitioner Family
DX: R05.9 Cough, unspecified (principal)
CPT/HCPCS: 71046

== ENCOUNTER → 2024-03-11 16:21 | Outpatient (CLI) | payer MEDICARE, OTHER, SELFPAY ==
[2021-07-08 16:00] VITALS: BMI 30.1
--- NOTE | 2024-03-11 16:23 | DI.MG.S_ITS ---
BILATERAL DIGITAL SCREENING MAMMOGRAM 3D/2D WITH CAD: 03/11/2024 CLINICAL: Routine screening. Family history of breast cancer. Comparison is made to exams dated: 01/31/2023 mammogram, 12/07/2021 mammogram, and 10/15/2020 mammogram - [facility]. There are scattered areas of fibroglandular density (category b / 25%-50% glandular tissue). Current study was also evaluated with a Computer Aided Detection (CAD) system. There is a possible developing 6 mm round low density asymmetry with a spiculated margin in the right breast at 12 o'clock middle depth. This is more prominent. No other significant masses, calcifications, or other findings are seen in either breast. IMPRESSION: INCOMPLETE: NEED ADDITIONAL IMAGING EVALUATION The possible developing 6 mm round low density asymmetry in the right breast is indeterminate. Additional views with possible ultrasound are recommended. Based on the Tyrer Cuzick model (a risk assessment model) the patient's lifetime risk is 4.5% and her 10 year risk is 2.6%. According to the ACR, ACS, and NCCN guidelines, an annual breast MRI exam along with mammogram is recommended if the patient's lifetime risk is 20% or greater. This exam was interpreted at Station ID: [id number]. NOTE: For mammograms, a report in lay terms will be sent to the patient. Approximately 15% of breast malignancies will not be visualized mammographically. In the management of a palpable breast mass, a negative mammogram must not discourage biopsy of a clinically suspicious lesion. Electronically Signed By: Priya rueda/tani:03/13/2024 12:47:07 letter sent: Additional Imaging Needed ACR BI-RADS Category 0: Incomplete: Need Additional Imaging Evaluation
== END ==
LOC: MAMMO 16:22
PROVIDERS: PCP Family Medicine; Referring Provider Family Medicine; Visit Provider Family Medicine
DX: Z12.31 Encounter for screening mammogram for malignant neoplasm of breast (principal); Z80.3 Family history of malignant neoplasm of breast
CPT/HCPCS: 77063; 77067

== ENCOUNTER → 2024-03-16 11:45 | Outpatient (CLI) | payer MEDICARE, OTHER, SELFPAY ==
[2021-07-08 16:00] VITALS: BMI 30.1
--- NOTE | 2024-03-16 11:48 | DI.RAD.S_ITS ---
PROCEDURE: XR CHEST 2V INDICATIONS: Persistent cough, chest congestion TECHNIQUE: 2 views of the chest were acquired. COMPARISON: [facility], CR, XR CHEST 2V, 01/03/2024, 12:19. FINDINGS: Surgical changes and devices: None. Lungs and pleura: Lungs are clear. No pleural effusions or pneumothorax. Mediastinum: Mediastinal contours are normal. Heart size is normal. Bones and chest wall: No suspicious bony abnormalities. Soft tissues appear unremarkable. IMPRESSION: No acute cardiopulmonary abnormality is seen. Dictated by: Indra Paul M.D. on 03/16/2024 at 11:13 Approved by: Indra Paul M.D. on 03/16/2024 at 11:15
== END ==
LOC: RAD 11:47
PROVIDERS: PCP Family Medicine; Referring Provider Physician Assistant Surgical; Visit Provider Physician Assistant Surgical
DX: R05.9 Cough, unspecified (principal); R09.89 Other specified symptoms and signs involving the circulatory and respiratory systems
CPT/HCPCS: 71046

== ENCOUNTER → 2024-04-10 08:23 | Outpatient (CLI) | payer MEDICARE, OTHER, SELFPAY ==
[2021-07-08 16:00] VITALS: BMI 30.1
--- NOTE | 2024-04-10 08:25 | DI.MG.S_ITS ---
UNILATERAL RIGHT DIGITAL DIAGNOSTIC MAMMOGRAM 3D/2D WITH ADDITIONAL VIEWS: 04/10/2024 CLINICAL: Additional evaluation requested from prior study. Comparison is made to exams dated: 03/11/2024 mammogram, 01/31/2023 mammogram, and 12/07/2021 mammogram - [facility]. There are scattered areas of fibroglandular density (category b / 25%-50% glandular tissue). The previously described possible developing 6 mm round low density asymmetry in the right breast at 11 o'clock middle depth. This is not seen in additional views. This is less prominent. No other significant masses or calcifications are seen in the breast. IMPRESSION: INCOMPLETE: NEED ADDITIONAL IMAGING EVALUATION The possible developing 6 mm round low density asymmetry in the right breast has a differential diagnosis of a cyst, fibroglandular tissue, or a lymph node and is indeterminate. An ultrasound is recommended for further evaluation and is scheduled to immediately follow this examination. Based on the Tyrer Cuzick model (a risk assessment model) the patient's lifetime risk is 4.5% and her 10 year risk is 2.6%. According to the ACR, ACS, and NCCN guidelines, an annual breast MRI exam along with mammogram is recommended if the patient's lifetime risk is 20% or greater. This exam was interpreted at Station ID: [id number]. NOTE: For mammograms, a report in lay terms will be sent to the patient. Approximately 15% of breast malignancies will not be visualized mammographically. In the management of a palpable breast mass, a negative mammogram must not discourage biopsy of a clinically suspicious lesion. Electronically Signed By: Juan Pablo Wallace M.D. aty/:04/10/2024 09:34:02 letter sent: Additional Imaging Needed ACR BI-RADS Category 0: Incomplete: Need Additional Imaging Evaluation
--- NOTE | 2024-04-10 08:25 | DI.US.S_ITS ---
LIMITED ULTRASOUND OF RIGHT BREAST: 04/10/2024 CLINICAL: Patient returns today to evaluate a focal asymmetry in the right breast. Comparison is made to exams dated: 04/10/2024 mammogram, 03/11/2024 mammogram, 01/31/2023 mammogram, 12/07/2021 mammogram, 10/15/2020 mammogram, and 10/09/2018 mammogram - [facility]. Color flow and real-time ultrasound of the right breast 1 o'clock and 9-11 o'clock regions were performed. Cadena scale images of the real-time examination were reviewed. There are two normal lymph nodes in the right breast middle depth at the 9 o'clock position. These normal lymph nodes are hypoechoic with fatty hilum. These correlate with mammography findings. However, there is no abnormality seen in the right breast upper outer quadrant to correspond with the described possible focal asymmetry seen on recent mammographic evaluation. IMPRESSION: PROBABLY BENIGN There is no sonographic evidence of malignancy. The multiple normal lymph nodes in the right breast 9 o'clock are stable and benign. There is no abnormality seen in the right breast to correspond with the mammography finding which is probably benign. A follow-up right mammogram with possible right ultrasound in 6 months is recommended to demonstrate stability. Findings and recommendations were conveyed to the patient during today's evaluation. This exam was interpreted at Station ID: [id number]. Electronically Signed By: Juan Pablo Wallace M.D. aty/:04/10/2024 10:34:05 letter sent: Followup Recommended ACR BI-RADS Category 3: Probably Benign
[2024-04-10 10:08] LABS: Alanine Aminotransferase 30 IU/L (<35); Albumin Globulin Ratio 1.5 (1.0-2.8); Alkaline Phosphatase 140 U/L (38-126); Aspartate Aminotransferase 29 IU/L (14-36); BUN Creatinine Ratio 11.8 (6-22); Bilirubin Total 0.4 mg/dL (0.2-1.3); Blood Urea Nitrogen 10 mg/dL (7-17); Calcium 9.8 mg/dL (8.4-10.2); Carbon Dioxide 26 mmol/L (22-32); Chloride 104 mmol/L (98-107); Cholesterol 201 mg/dL (140-199); Estimated Glomerular Filt Rate > 60 mL/min (>60); Globulin 2.7 g/dL (1.7-4.1); Glucose 100 mg/dL (80-110); HDL Cholesterol 43 mg/dL (40-60); HEMOLYSIS < 15 (0-50); LDL Cholesterol Calculated 126 mg/dL (<100); Sodium 139 mmol/L (137-145); Total Protein 6.7 g/dL (6.3-8.2); Triglycerides 161 mg/dL (35-150)
[2024-04-10 11:03] LABS: Creatinine Urine Random 67.29 mg/dL
[2024-04-10 11:16] LABS: Microalbumin Urine Random < 0.6 mg/dL (0-1.6)
== END ==
PROVIDERS: PCP Family Medicine; Referring Provider Family Medicine; Visit Provider Family Medicine
DX: I10 Essential (primary) hypertension; R92.8 Other abnormal and inconclusive findings on diagnostic imaging of breast; E78.2 Mixed hyperlipidemia
CPT/HCPCS: 36415; 76642; 77065; 80053; 80061; 82043; 82570; G0279

== ENCOUNTER → 2024-10-20 08:58 | Outpatient (CLI) | payer MEDICARE, OTHER, SELFPAY ==
[2021-07-08 16:00] VITALS: BMI 30.1
--- NOTE | 2024-10-20 08:59 | DI.US.S_ITS ---
MM diagnostic mammo unilat RT, US breast RT limited: 10/20/2024 BI-RADS: 3 CLINICAL: 69-year old female for right diagnostic mammogram and right diagnostic breast ultrasound that is a follow-up to ultrasound, right on 04/10/2024. Tyrer-Cuzick lifetime risk of 5.0%. No personal or first-degree family history of breast cancer. PRIOR EXAMS 04/10/2024, 03/11/2024, 01/31/2023, 12/07/2021, 10/15/2020, 10/09/2018, 08/07/2017. MAMMOGRAPHY TECHNIQUE: 2D and 3D (tomosynthesis) digital mammographic views obtained, with additional images as needed for full coverage. Current study was also evaluated with a Computer Aided Detection (CAD) system. ULTRASOUND TECHNIQUE TARGETED Right Breast Ultrasound: Real-time ultrasound exam was performed focused to area of clinical and/or imaging concern. DENSITY Right: B. There are scattered areas of fibroglandular density. MAMMOGRAPHY FINDINGS Right: Upper at 12:00, Middle depth: There is a focal asymmetry present that has decreased in size. No sonographic correlate seen on prior evaluation. ULTRASOUND FINDINGS Right: Upper Outer at 10:30: There is no sonographic correlate for the mammographic finding which has decreased in prominence today. Right: Axillary Tail: No abnormal lymph nodes are seen in the axilla. No suspicious sonographic finding present. IMPRESSION: Right: Upper Outer at 10:30 * Probably Benign. RECOMMENDATIONS Right: Upper Outer at 10:30 * Six month followup with diagnostic mammography. COMMENTS: Findings and recommendations were conveyed to the patient during today's evaluation. OVERALL ASSESSMENT CATEGORY BI-RADS-3: Probably Benign. ELECTRONICALLY SIGNED: Juan Pablo Wallace M.D. on 10/20/2024 at 09:48:46 AM PT Interpreting Station ID: [id number]
== END ==
PROVIDERS: PCP Family Medicine; Referring Provider Family Medicine; Visit Provider Family Medicine
DX: R92.8 Other abnormal and inconclusive findings on diagnostic imaging of breast (principal); N64.89 Other specified disorders of breast; R92.321 Mammographic fibroglandular density, right breast
CPT/HCPCS: 76642; 77065; G0279

== ENCOUNTER → 2025-04-23 09:39 | Outpatient (CLI) | payer MEDICARE, OTHER, SELFPAY ==
[2021-07-08 16:00] VITALS: BMI 30.1
[2025-04-23 11:09] LABS: Alanine Aminotransferase 19 IU/L (<35); Albumin 4.5 g/dL (3.5-5.0); Albumin Globulin Ratio 1.6 (1.0-2.8); Alkaline Phosphatase 99 U/L (38-126); Blood Urea Nitrogen 20 mg/dL (7-17); Calcium 10.4 mg/dL (8.4-10.2); Carbon Dioxide 26 mmol/L (22-32); Chloride 104 mmol/L (98-107); Cholesterol 219 mg/dL (140-199); Estimated Glomerular Filt Rate > 60 mL/min (>60); Globulin 2.9 g/dL (1.7-4.1); Glucose 104 mg/dL (70-99); HDL Cholesterol 67 mg/dL (40-60); HEMOLYSIS < 15 (0-50); Potassium 4.1 mmol/L (3.4-5.1); Sodium 140 mmol/L (137-145); Total Protein 7.4 g/dL (6.3-8.2); Triglycerides 173 mg/dL (35-150)
[2025-04-23 11:54] LABS: Microalbumi Creatinin Ratio Ur 10.0 ug/mg CR (<30)
== END ==
PROVIDERS: PCP Family Medicine; Referring Provider Family Medicine; Visit Provider Family Medicine
DX: I10 Essential (primary) hypertension (principal)
CPT/HCPCS: 36415; 80053; 80061; 82043; 82570

== ENCOUNTER → 2025-04-24 13:45 | Outpatient (CLI) | payer MEDICARE, OTHER, SELFPAY ==
[2021-07-08 16:00] VITALS: BMI 30.1
--- NOTE | 2025-04-24 13:47 | DI.MG.S_ITS ---
MM diagnostic mammo BI: 04/24/2025. BI-RADS: 3 CLINICAL: 69-year old female for bilateral diagnostic mammogram that is a follow-up to diagnostic mammogram on 10/20/2024. Tyrer-Cuzick lifetime risk of 4.7%. No personal or first-degree family history of breast cancer. Current reported family history of breast cancer: paternal aunt's daughter. PRIOR EXAMS Mammogram(s): 10/20/2024, 04/10/2024, 03/11/2024, 01/31/2023. MAMMOGRAPHY TECHNIQUE: 2D and 3D (tomosynthesis) digital mammographic views obtained, with additional images as needed for full coverage. Current study was also evaluated with a Computer Aided Detection (CAD) system. DENSITY B. There are scattered areas of fibroglandular density. MAMMOGRAPHY FINDINGS Right: Upper at 12:00: Correlating with prior imaging concern, there is a stable focal asymmetry present. No sonographic correlate was identified on prior ultrasound. Left: No suspicious mass, asymmetry, microcalcification, or other abnormality seen. IMPRESSION: Right (Asymmetry): Upper at 12:00 * Probably Benign. Left * No evidence of malignancy. RECOMMENDATIONS Right: Upper at 12:00, Middle depth * Followup with diagnostic mammography in one year to demonstrate 2 year stability. Left * Annual screening mammography in one year. COMMENTS: Findings and recommendations were conveyed to the patient during today's evaluation. OVERALL ASSESSMENT CATEGORY BI-RADS-3: Probably Benign. ELECTRONICALLY SIGNED: Angelina Suarez M.D. on 04/24/2025 at 04:00:26 PM PT Interpreting Station ID: [id number]
== END ==
LOC: MAMMO 13:46
PROVIDERS: PCP Family Medicine; Referring Provider Family Medicine; Visit Provider Family Medicine
DX: R92.8 Other abnormal and inconclusive findings on diagnostic imaging of breast (principal); N64.89 Other specified disorders of breast; Z80.3 Family history of malignant neoplasm of breast
CPT/HCPCS: 77066; G0279